=== PATIENT | female | born 1935 | race Caucasian/White ===

== ENCOUNTER 2019-05-20 11:25 | Observation (INO) ==
[2019-05-20 11:31] VITALS: BMI 25.7
[2019-05-20] MEDS ORDERED: NS 1000 ML 1,000 ML IV ONE (11:49)
[2019-05-20] MEDS ORDERED: TYLENOL 500 MG TAB EXTRA STRENGTH PO PRN (11:52)
[2019-05-20] MEDS ORDERED: NS 1000 ML 1,000 ML ONE (12:07)
[2019-05-20 12:11] LABS: BASOPHILS % (AUTO) 0.6 % (0.2-1.0); EOSINOPHILS # (AUTO) 0.1 x10^3/uL (0.0-0.2); EOSINOPHILS % (AUTO) 1.2 % (0.9-2.9); LYMPHOCYTES % (AUTO) 20.3 % (21.0-51.0); MEAN CORPUSCULAR HEMOGLOBIN 27.8 pg (27.0-34.0); MEAN CORPUSCULAR HGB CONC 34.5 g/dL (33.0-35.0); MEAN CORPUSCULAR VOLUME 80.6 fL (80.0-100.0); MEAN PLATELET VOLUME 7.4 fL (7.4-11.0); MONOCYTES # (AUTO) 0.3 x10^3/uL (0.3-0.8); MONOCYTES % (AUTO) 6.3 % (0.0-13.0); NEUTROPHILS # (AUTO) 3.4 x10^3/uL (2.2-4.8); NEUTROPHILS % (AUTO) 71.6 % (42.0-75.0); PLATELET COUNT 246 X10^3/uL (150.0-450.0); RED BLOOD COUNT 3.96 X10^6/uL (3.5-5.4); RED CELL DISTRIBUTION WIDTH 14.6 % (11.6-16.5); WHITE BLOOD COUNT 4.8 X10^3/uL (3.6-10.0)
[2019-05-20 12:22] LABS: BLOOD UREA NITROGEN 21 mg/dL (7-18); CALCIUM 9.2 mg/dL (8.5-10.1); CARBON DIOXIDE 23.9 mmol/L (21-32); CHLORIDE 101 mmol/L (98-107); CREATININE 1.03 mg/dL (0.55-1.02); SODIUM 137 mmol/L (136-145); eGFR NON BLACK RACES 55 (>60)
[2019-05-20] MEDS ORDERED: LOPRESSOR INJ 5 MG AMP IVP ONE (12:42)
[2019-05-20] MEDS ORDERED: LOPRESSOR INJ 5 MG AMP ONE (12:52)
--- NOTE | 2019-05-20 13:07 | DR.DIZZY ---
HPI Time seen Time Seen by Provider: 05/20/19 11:39 PCP Primary Care Physician: FRANCESCA RUSSELL Complaint Chief Complaint Doctor Comments: Pt reports for the past 2 days feeling weak and presyncope when standing. She reports some nausea and not feeling well. She denies any CP, sob or melena. She has history of GIB in the past and is now currently on hydralazine PO and does not take her other home medications (metoprolol tart 25, amlodipine, tramadol and protonix. Denies any falls and use walker for assistance. Chief Complaint:: PT C/O THAT WHEN SHE STANDS UP SHE ABOUT PASSES OUT ,BR Self Treatment fo Chief Complaint: PT TOOK HER HYDRALIZINE THIS AM , PASSING BLOOD IN HER STOOLS, Nurses Notes Reviewed Nurses Notes Review: Yes Source History Provided: Patient and Family Member Mode of Arrival Mode of Arrival: Ambulatory Timing Onset of Chief Complaint: 05/18/19 Came on: Gradually Symptom Onset: Known Onset of Symptoms Start Date: 05/18/19 Duration Duration: Intermittent Location of Weakness Weakness Location: Generalized Context Onset: At rest and With light exertion Does pt take pot. toxic medication?: No History of: Anemia and GI Bleed; denies DM and OK Stroke Symptoms: None Associated signs and symptoms Associated Signs and Symptoms: Near Syncope, Weak, Palpitations and Nausea; denies Syncope and Fever PMH PMH Past Medical History: Yes Past Medical History: Hypertension Past Medical History Comment: GIB Past Surgical History: Yes Surgical History: Family History History of Family Medical Conditions: Yes Family Medical History: [place] and Hypertension Social History Does patient currently use any type of tobacco product: No Have you used tobacco products in the last 12 months: No Type of Tobacco Use: None Does any household member use tobacco: No Alcohol Use: None Do you use any recreational Drugs:: No Lives With: Family Lives Where: Home infectious screening In the last 2 months have you had wt loss of >10#?: NO Have you had fever, night sweats or hemotysis?: No Have you traveled outside the country in the last 6 months?: No Isolation: Standard ROS Review of Systems Constitutional: No Symptoms Reported and Fatigue; negative Chills and Fever Eyes: No Symptoms Reported ENTM: No Symptoms Reported Respiratoy: No Symptoms Reported and See HPI; negative Short of Breath Cardiovascular: No Symptoms Reported, See HPI, Palpitations and Syncope; negative Chest Pain Gastrointestinal/Abdominal: No Symptoms Reported, See HPI and Nausea; negative Abdominal Pain Genitourinary: No Symptoms Reported; negative Hematuria Neurological: No Symptoms Reported; negative Paresthesia Musculoskeletal: No Symptoms Reported Integumentary: No Symptoms Reported Hematologic/Lymphatic: No Symptoms Reported and Anemia; negative Easy Bleeding and Easy Bruising Endocrine: No Symptoms Reported Psychiatric: No Symptoms Reported; negative Depression All Other Systems: Reviewed and Negative PE Vital Signs Vitals: Temperature 96.6 F Pulse Rate [Apical] 143 Pulse Rate 109 Respiratory Rate 20 Blood Pressure [Right Arm] 140/89 Blood Pressure 128/74 O2 Sat by Pulse Oximetry 98 General Limitations: No Limitations General Appearance: Alert, In No Apparent Distress and In Distress (mild) Head Head Exam: Normal Inspection and Atraumatic Eyes Eye exam: Normal Appearance and Other; negative Scleral Icterus Pupils: Regular, Round: Bilateral and Reactive: Bilateral Sclera/Conjunctival: Normal Inspection: Bilateral (pale conjunctiva) ENT ENT Exam: Normal Exam, Normal Oropharynx and Normal External Ear Exam Neck Neck Exam: Normal Inspection and Full ROM Chest Chest Inspection: Normal Inspection Respiratory Respiratory Exam: Normal Lung Sounds Bilat; negative Chest Wall Tenderness and Respiratory Distress Cardiovascular Cardiovascular Exam: Tachycardia and Irregular Rhythm Abdominal Exam Abdominal Exam: Normal Inspection, Normal Bowel Sounds and Soft Extremeties Extremities Exam: Normal Inspection and Full ROM Back Back Exam: Normal Inspection and Full ROM Neurologic Neurological Exam: Alert, Oriented X3, CN II-XII Intact, Motor Sensory Deficit and Reflexes Normal Patient Oriented To: Person, Place and Time Speech: Fluid Speech Psychiatric Psychiatric Exam: Normal Affect and Normal Mood Skin Skin Exam: Warm, Dry, Intact and Normal Color MDM Additional Information Obtained Additional Information Obtained From: Family Differential Diagnosis Differential Diagnosis: Dysrhythmia (new onset afib) Differential Diagnosis Comment: [place]/GIB/anemia/dehdyration COURSE Treatment Treatment: Pt presented with elevated HR in 140s. She is afib and has not been taking metoprolol. Pt CHADS2 score 2. Will start on Eliquis. Reevaluation 1st: Improved (pt HR improved to 110 irregular after BB. Pt has no symptoms at time. Pt needs further evaluation for afib) Consultation Called: 13:21 Call Returned: 13:21 Consultation Comments: Pt with new onset afib. Spoke to Dr. Baxter and will admit and see in hospital Education/Counseling Education/Counseling: Patient, Family and Education Educated On: Treatment, Diagnosis, Prognosis and Needs for Follow Up (cardiology) ROR Labs Reviewed Laboratory Results Reviewed?: Yes Result Diagrams: 05/20/19 12:01 05/20/19 12:01 Laboratory: WBC 4.8 X10^3/uL (3.6-10.0) 05/20/19 12:01 RBC 3.96 X10^6/uL (3.5-5.4) 05/20/19 12:01 Hgb 11.0 g/dL (12.0-16.0) L 05/20/19 12:01 Hct 32.0 % (36.0-47.0) L 05/20/19 12:01 MCV 80.6 fL (80.0-100.0) 05/20/19 12:01 MCH 27.8 pg (27.0-34.0) 05/20/19 12:01 MCHC 34.5 g/dL (33.0-35.0) 05/20/19 12:01 RDW 14.6 % (11.6-16.5) 05/20/19 12:01 Plt Count 246 X10^3/uL (150.0-450.0) 05/20/19 12:01 MPV 7.4 fL (7.4-11.0) 05/20/19 12:01 Neut % (Auto) 71.6 % (42.0-75.0) 05/20/19 12:01 Lymph % (Auto) 20.3 % (21.0-51.0) L 05/20/19 12:01 [place] % (Auto) 6.3 % (0.0-13.0) 05/20/19 12:01 Eos % (Auto) 1.2 % (0.9-2.9) 05/20/19 12:01 Baso % (Auto) 0.6 % (0.2-1.0) 05/20/19 12:01 Neut # (Auto) 3.4 x10^3/uL (2.2-4.8) 05/20/19 12:01 Lymph # (Auto) 1.0 X10^3/uL (1.3-2.9) L 05/20/19 12:01 [place] # (Auto) 0.3 x10^3/uL (0.3-0.8) 05/20/19 12:01 Eos # (Auto) 0.1 x10^3/uL (0.0-0.2) 05/20/19 12:01 Baso # (Auto) 0.0 X10^3/uL (0.0-0.1) 05/20/19 12:01 Absolute Nucleated RBC 0.0 /100WBC 05/20/19 12:01 INR Target Range - 05/20/19 12:01 INR 1.12 (0.8-1.3) 05/20/19 12:01 Sodium 137 mmol/L (136-145) 05/20/19 12:01 Corrected Sodium TNP 05/20/19 12:01 Potassium 4.0 mmol/L (3.5-5.1) 05/20/19 12:01 Chloride 101 mmol/L (98-107) 05/20/19 12:01 Carbon Dioxide 23.9 mmol/L (21-32) 05/20/19 12:01 BUN 21 mg/dL (7-18) H 05/20/19 12:01 Creatinine 1.03 mg/dL (0.55-1.02) H 05/20/19 12:01 Est GFR (MDRD) Af Amer > 60 (>60) 05/20/19 12:01 Est GFR (MDRD) Non-Af 55 (>60) L 05/20/19 12:01 Glucose 108 mg/dL (65-99) H 05/20/19 12:01 Calcium 9.2 mg/dL (8.5-10.1) 05/20/19 12:01 Troponin I 0.30 ng/mL (0-1.5) 05/20/19 12:01 TSH 3rd Generation 1.325 uIU/mL (0.358-3.74) 05/20/19 12:01 XRAY XRAY Interpreted by: Self XRAY Findings: CM, NAF EKG Rate: 126 Rush: Normal Rhythm: Afib Block: None Hypertrophy: None ST: Nonsp Opioid Opioid Risk Tool Total: 0 Total Score Risk Category: Low Risk Copyright: [facility] predicting aberrant behaviors
[2019-05-20] MEDS ORDERED: TOPROL XL PO SCH (14:00)
[2019-05-20] MEDS: NS 1000 ML 1,000 ML IV SCH (14:42)
[2019-05-20] MEDS ORDERED: ELIQUIS ONE (14:44)
[2019-05-20] MEDS ORDERED: TOPROL XL PO ONE (14:44)
[2019-05-20] MEDS: ELIQUIS PO SCH ×2 (14:49→21:12)
[2019-05-20 16:43] LABS: BILIRUBIN,URINE NEGATIVE (NEGATIVE); BLOOD/HEMOGLOBIN,URINE 1+ (NEGATIVE); GLUCOSE, URINE NEGATIVE (NEGATIVE); KETONES,URINE NEGATIVE (NEGATIVE); LEUKOCYTE ESTERASE ,URINE 3+ (NEGATIVE); NITRITES,URINE NEGATIVE (NEGATIVE); PH,URINE 6.5 (5.0 - 8.0); PROTEIN,URINE 2+ (NEGATIVE); UROBILINOGEN,URINE NORMAL (NORMAL)
[2019-05-20 16:53] LABS: APPEARANCE,URINE CLOUDY (CLEAR); COLOR,URINE YELLOW (YELLOW)
[2019-05-20 16:54] LABS: RBC,URINE 0-2 /HPF (NONE SEEN); SQUAMOUS EPITHELIAL CELL,UR MODERATE /HPF (NEGATIVE)
[2019-05-20 16:55] LABS: AMORPHOUS SEDIMENT,UR 2+ /HPF (NEGATIVE); BACTERIA,URINE 2+ /HPF (NEGATIVE); RENAL EPITHELIAL CELLS,URINE RARE /HPF (NEGATIVE)
[2019-05-20] MEDS ORDERED: APRESOLINE TAB 25 MG PO SCH (21:00)
[2019-05-21 05:12] LABS: BASOPHILS % (AUTO) 0.7 % (0.2-1.0); EOSINOPHILS # (AUTO) 0.1 x10^3/uL (0.0-0.2); EOSINOPHILS % (AUTO) 2.4 % (0.9-2.9); HEMOGLOBIN 10.2 g/dL (12.0-16.0); LYMPHOCYTES # (AUTO) 1.4 X10^3/uL (1.3-2.9); LYMPHOCYTES % (AUTO) 33.3 % (21.0-51.0); MEAN CORPUSCULAR HEMOGLOBIN 28.1 pg (27.0-34.0); MEAN CORPUSCULAR HGB CONC 35.2 g/dL (33.0-35.0); MEAN CORPUSCULAR VOLUME 79.9 fL (80.0-100.0); MEAN PLATELET VOLUME 7.7 fL (7.4-11.0); MONOCYTES # (AUTO) 0.2 x10^3/uL (0.3-0.8); MONOCYTES % (AUTO) 5.5 % (0.0-13.0); NEUTROPHILS # (AUTO) 2.4 x10^3/uL (2.2-4.8); NEUTROPHILS % (AUTO) 58.1 % (42.0-75.0); PLATELET COUNT 220 X10^3/uL (150.0-450.0); RED BLOOD COUNT 3.64 X10^6/uL (3.5-5.4); RED CELL DISTRIBUTION WIDTH 14.8 % (11.6-16.5); WHITE BLOOD COUNT 4.1 X10^3/uL (3.6-10.0)
[2019-05-21] MEDS: NS 1000 ML 1,000 ML IV SCH ×2 (05:19→21:05)
[2019-05-21 05:23] LABS: BLOOD UREA NITROGEN 20 mg/dL (7-18); CALCIUM 8.4 mg/dL (8.5-10.1); CARBON DIOXIDE 25.8 mmol/L (21-32); CHLORIDE 107 mmol/L (98-107); CREATININE 0.89 mg/dL (0.55-1.02); SODIUM 141 mmol/L (136-145); eGFR NON BLACK RACES > 60 (>60)
[2019-05-21] MEDS ORDERED: TOPROL XL PO SCH ×2 (09:00→15:34)
[2019-05-21] MEDS: ELIQUIS PO SCH ×2 (10:57→21:06)
--- NOTE | 2019-05-21 11:21 | CONS ---
Cardiology Consult Consultation for Day of: Date: 05/21/19 Chief Complaint Chief Complaint: near syncope Allergies Allergies Allergy/AdvReac Type Severity Reaction Status Date / Time No Known Drug Allergies Allergy Verified 05/20/19 11:26 History of Present Illness History of Present Illness: Patient presents to the ED with near syncope that started about 4 days ago. She states it was gradually getting worse which led her to coming to the ED. The near syncope is daily with getting up and occurs without any other symptoms. She comes to the ED and is found to be in atrial fib with heart rate not optimized. She was started on Eliquis and metoprolol which was just increased to 50mg daily. Past Medical History Past Medical History: Anemia and Hypertension Additional Medical History: hx GI bleed Past Surgical History Surgical History: and Tonsillectomy Family History Family Medical History: [place] and Hypertension Social History Does patient currently use any type of tobacco product: No Have you used tobacco products in the last 12 months: No Type of Tobacco Use: None Does any household member use tobacco: No Alcohol Use: None Drug Use: None Medications Home Medications: No Known Drug Allergies Allergy (Verified 05/20/19 11:26) CONTINUE taking the following medications tramadol 50 mg PO Q6HR 05/20/19 [History] Physical Exam Vital Signs: Temperature 97.8 F Pulse Rate [Apical] 113 Pulse Rate 109 Respiratory Rate 22 Blood Pressure [Right Arm] 174/77 Blood Pressure 128/74 O2 Sat by Pulse Oximetry 100 Medical Decision Making Reason for Consult: Cardiac Dysrhythmia (atrial fib) EKG Results: Atrial Fibrillation Labs reviewed: Yes Plan Plan: 1. New onset atrial fib on metoprolol and Eliquis which was started in hospital- continue meds continue to monitor on telemetry 2. near syncope f/u with echo 3. Htn currently not optimized 4. hx GI bleed will closely monitor pt on eliquis
--- NOTE | 2019-05-21 11:50 | CONS ---
Documented by User: QUIN COHEN 05/21/19 11:50 Cardiology Consult Allergies Allergies Allergy/AdvReac Type Severity Reaction Status Date / Time No Known Drug Allergies Allergy Verified 05/20/19 11:26 Past Medical History Past Medical History: Additional Medical History: Past Surgical History Surgical History: Family History Family Medical History: Social History Does patient currently use any type of tobacco product: Have you used tobacco products in the last 12 months: Type of Tobacco Use: Does any household member use tobacco: Alcohol Use: Drug Use: Medications Home Medications: No Known Drug Allergies Allergy (Verified 05/20/19 11:26) CONTINUE taking the following medications tramadol 50 mg PO Q6HR 05/20/19 [History] Physical Exam Vital Signs: Temperature 97.8 F Pulse Rate [Apical] 99 Pulse Rate 109 Respiratory Rate 18 Blood Pressure [Right Arm] 172/92 Blood Pressure 128/74 O2 Sat by Pulse Oximetry 100 Documented by User: Jomar Lee 05/21/19 12:02 Cardiology Consult Allergies Allergies Allergy/AdvReac Type Severity Reaction Status Date / Time No Known Drug Allergies Allergy Verified 05/20/19 11:26
--- NOTE | 2019-05-21 11:54 | CONS ---
Cardiology Consult Allergies Allergies Allergy/AdvReac Type Severity Reaction Status Date / Time No Known Drug Allergies Allergy Verified 05/20/19 11:26 Past Medical History Past Medical History: Anemia and Hypertension Additional Medical History: hx GI bleed Past Surgical History Surgical History: and Tonsillectomy Family History Family Medical History: [place] and Hypertension Social History Does patient currently use any type of tobacco product: No Have you used tobacco products in the last 12 months: No Type of Tobacco Use: None Does any household member use tobacco: No Alcohol Use: None Drug Use: None Medications Home Medications: No Known Drug Allergies Allergy (Verified 05/20/19 11:26) CONTINUE taking the following medications tramadol 50 mg PO Q6HR 05/20/19 [History] Physical Exam Vital Signs: Temperature 97.8 F Pulse Rate [Apical] 99 Pulse Rate 109 Respiratory Rate 18 Blood Pressure [Right Arm] 172/92 Blood Pressure 128/74 O2 Sat by Pulse Oximetry 100 Impression: Presently she is not bleeding but she has chronic anemia and they placed her on Eliquis. My official recommendation is as follows I would suspect the patient is likely to rebleed in the future especially being on Eliquis. I would recommend treating her with a baby aspirin daily and consider referring her for a possible watchman procedure. . The patient was admitted now with atrial fibrillation with a rapid ventricular response. 1-Consider stopping eliquis due to severe GI bleed in the past. 2-Place on baby ASA only. 3-Add low dose cardizem to the metoprolol for better rate control. 4-Will discuss with electrophysiology with regards to a possible Watchman proced ure. 5-Follow up with me in [place] office on May 30. 6-Will review echo results.
[2019-05-21] MEDS: ZESTRIL TAB 10 MG PO SCH (12:29)
[2019-05-21] MEDS ORDERED: TOPROL XL ONE (15:37)
[2019-05-21] MEDS ORDERED: XYLOCAINE 1% and EPINEPHRINE 1:100,000 ONE (16:04)
[2019-05-21] MEDS ORDERED: RESTORIL CAP 15 MG PO PRN (21:59)
[2019-05-21] MEDS ORDERED: RESTORIL CAP 15 MG PO ONE (22:01)
[2019-05-22] MEDS ORDERED: TOPROL XL ONE (08:06)
[2019-05-22] MEDS: ZESTRIL TAB 10 MG PO SCH (08:37)
[2019-05-22] MEDS ORDERED: TOPROL XL PO SCH (09:00)
[2019-05-22] MEDS: ELIQUIS PO SCH (09:58)
[2019-05-22] MEDS: NS 1000 ML 1,000 ML IV SCH (09:58)
[2019-05-22 11:42] VITALS: BP 163/73
== END 2019-05-22 12:05 | disposition home or self-care (01) ==
LOC: ICU 11:25 → ER 11:25 → ICU 14:29
PROVIDERS: ADMIT Obstetrics & Gynecology Obstetrics; ATTEND Obstetrics & Gynecology Obstetrics
DX: I10 Essential (primary) hypertension; R94.31 Abnormal electrocardiogram [ECG] [EKG]; R55 Syncope and collapse; I48.91 Unspecified atrial fibrillation; Z87.19 Personal history of other diseases of the digestive system; S31.43XA Puncture wound without foreign body of vagina and vulva, initial encounter
CPT/HCPCS: 36415; 71010; 71045; 80048; 81001; 84443; 84484; 85025; 85610; 87086; 88305; 93005; 93306; 96365; 96367; 96374; 99285; A4216; A4222; G0378; J3490; J7030

== ENCOUNTER 2019-09-05 06:30 | Inpatient (IN) ==
[2019-09-05] MEDS ORDERED: NS 1000 ML 1,000 ML IV ONE (07:00)
[2019-09-05] MEDS ORDERED: NS 1000 ML 1,000 ML ONE (07:00)
[2019-09-05 07:11] LABS: BASOPHILS % (AUTO) 0.7 % (0.2-1.0); EOSINOPHILS # (AUTO) 0.1 x10^3/uL (0.0-0.2); EOSINOPHILS % (AUTO) 1.9 % (0.9-2.9); HEMATOCRIT 22.8 % (36.0-47.0); HEMOGLOBIN 7.7 g/dL (12.0-16.0); LYMPHOCYTES # (AUTO) 1.5 X10^3/uL (1.3-2.9); LYMPHOCYTES % (AUTO) 23.1 % (21.0-51.0); MEAN CORPUSCULAR HEMOGLOBIN 26.7 pg (27.0-34.0); MEAN CORPUSCULAR HGB CONC 33.6 g/dL (33.0-35.0); MEAN CORPUSCULAR VOLUME 79.3 fL (80.0-100.0); MEAN PLATELET VOLUME 8.6 fL (7.4-11.0); MONOCYTES # (AUTO) 0.3 x10^3/uL (0.3-0.8); MONOCYTES % (AUTO) 5.3 % (0.0-13.0); NEUTROPHILS # (AUTO) 4.5 x10^3/uL (2.2-4.8); PLATELET COUNT 215 X10^3/uL (150.0-450.0); RED BLOOD COUNT 2.87 X10^6/uL (3.5-5.4); RED CELL DISTRIBUTION WIDTH 15.7 % (11.6-16.5); WHITE BLOOD COUNT 6.5 X10^3/uL (3.6-10.0)
[2019-09-05 07:13] LABS: ALBUMIN 2.9 g/dL (3.4-5.0); CALCIUM 8.3 mg/dL (8.5-10.1); CARBON DIOXIDE 25.4 mmol/L (21-32); COR CA(FOR HYPOALB) 9.2 mg/dL (8.5-10.1); CREATININE 1.26 mg/dL (0.55-1.02); TOTAL PROTEIN 5.9 g/dL (6.4-8.2)
[2019-09-05 07:17] LABS: ANISOCYTOSIS SLIGHT; MICROCYTOSIS SLIGHT; PLATELET MORPHOLOGY COMMENT NORMAL (NORMAL); POIKILOCYTOSIS SLIGHT
--- NOTE | 2019-09-05 07:22 | DR.GIBLEED ---
HPI Time Seen Time Seen by Provider: 09/05/19 06:49 Primary Care Physician Primary Care Physician: NFD Complaints Chief Complaint Doctors Comments: 84yo female presented for rectal bleeding. Pt reports 2d ago noticed blood in her stools. She report the blood is bright red and color of beats. She has a history of internal hemorrhoids removed and colon oscopy earlier this year. She had episode of GIB and required multiple units of PRBCs. She was placed on Eliquis 06/2019 for afib. Today she reports some lower abdominal cramping. Pain is 2/10. She has had gross melena with her BM. Denies any SOB, CP or dysuria. Chief Complaint:: PATIENT STATES SHE HAS BEEN GOING TO THE BATHROOM ALL NIGHT WITH BLEEDING , STATES THIS HAS HAPPENED BEFORE AND SHE HAD TO HAVE SOME BLOOD AND BE SENT TO [place], [place] NOTED TO BE ON ELIQUIS. Self Treatment fo Chief Complaint: N.A Reviewed Nurses Notes Reviewed: Yes Source History Provided: Patient Mode of Arrival Mode of Arrival: Ambulatory Timing Onset of Chief Complaint: 09/05/19 Duration Bleeding: Currently Present Duration: Days Quality Vomitus: None Stools: Streaking Blood History Of: GI Bleed and Current anticoagulant use (eliquis) Severity Severity: None Measure: Teaspoons Context Onset: After bowel movement Recent Use Of: None Associated Signs and Symptoms Associated Signs and Symptoms: Abdominal Pain PMH PMH Past Medical History: Yes Past Medical History: Anemia and Hypertension Past Medical History Comment: AFIB Past Surgical History: Yes Surgical History: and Tonsillectomy Family History History of Family Medical Conditions: Yes Family Medical History: [place] and Hypertension Social History Does patient currently use any type of tobacco product: No Have you used tobacco products in the last 12 months: No Type of Tobacco Use: None Does any household member use tobacco: No Alcohol Use: None Do you use any recreational Drugs:: No Lives With: Family Lives Where: Home infectious screening In the last 2 months have you had wt loss of >10#?: NO Have you had fever, night sweats or hemotysis?: No Have you traveled outside the country in the last 6 months?: No Isolation: Standard ROS Review of Systems Constitutional: Weakness and Fatigue Eyes: negative Blurred Vision ENTM: negative Nose Congestion Respiratoy: negative Short of Breath Cardiovascular: negative Chest Pain and Syncope Gastrointestinal/Abdominal: Abdominal Pain and Other (melena); negative Nausea and Vomiting Genitourinary: negative Dysuria and Hematuria Neurological: Weakness; negative Headache Musculoskeletal: negative Muscle Pain Integumentary: negative Bruises Hematologic/Lymphatic: Easy Bleeding Endocrine: negative Decreased Appetite Psychiatric: negative Depression All Other Systems: Reviewed and Negative PE Vital Signs Vitals: Temperature 98.7 F Pulse Rate 100 Respiratory Rate 18 Blood Pressure [Right Arm] 123/67 Blood Pressure 148/94 O2 Sat by Pulse Oximetry 100 General Limitations: No Limitations General Appearance: Alert and In No Apparent Distress Head Head Exam: Normal Inspection, Atraumatic and Normocephalic Eyes Eye exam: Normal Appearance, PERRL, EOMI and Other (pale conjunctiva); negative Scleral Icterus and Conjunctival Injection ENT ENT Exam: Normal Exam, Normal Oropharynx and Mucous Membranes Moist Neck Neck Exam: Normal Inspection and Full ROM Respiratory Respiratory Exam: Normal Lung Sounds Bilat; negative Respiratory Distress Respiratory Exam: Bilateral: Clear to Auscultation Cardiovascular Cardiovascular Exam: Tachycardia and Irregular Rhythm Abdominal Exam Abdominal Exam: Normal Inspection, Normal Bowel Sounds and Soft; negative Distention and Tenderness Rectal Rectal Exam: Normal Rectal Tone, Heme (+) Stool (gross melena) and Bloody Stool; negative Hemorrhoids Extremities Extremities Exam: Normal Inspection, Full ROM and Normal Capillary Refill; negative Tenderness and Edema Back Back Exam: Normal Inspection and Full ROM Neurologic Neurological Exam: Alert, Oriented X3, Normal Gait and Reflexes Normal; negative Motor Sensory Deficit Psychiatric Psychiatric Exam: Normal Affect and Normal Mood Skin Skin Exam: Warm, Dry, Intact and Pallor DIFFERENTIAL DIAGNOSIS Differential Diagnosis Differential Diagnosis: Diverticulosis, PUD and Stress Ulcers COURSE Treatment Treatment: Pt with rectal bleeding on eliguis. Hb 7.7 and positive guiac. Will transfuse 2 units PRBC and admit for further evaluation. Reevaluation 1st: Improved (pt doing well. d/w pt and family and lab and imaging result. Pt stable and will admit) Consultation Consultation Comments: 07:[address] Baxter for admission. Accepted and will see in hospital 07:[address] Purcell for GIB. Recommend NPO and will see in hospital. Agree with plan Education/Counseling Education/Counseling: Patient, Family, Education and Counseling Educated On: Treatment, Diagnosis, Prognosis and Needs for Follow Up (pcp/gi) ROR Labs Reviewed Laboratory Results Reviewed?: Yes Result Diagrams: 09/05/19 06:53 11/13/19 06:53 Laboratory: WBC 6.5 X10^3/uL (3.6-10.0) 09/05/19 06:53 RBC 2.87 X10^6/uL (3.5-5.4) L 09/05/19 06:53 Hgb 7.7 g/dL (12.0-16.0) L 09/05/19 06:53 Hct 22.8 % (36.0-47.0) L 09/05/19 06:53 MCV 79.3 fL (80.0-100.0) L 09/05/19 06:53 MCH 26.7 pg (27.0-34.0) L 09/05/19 06:53 MCHC 33.6 g/dL (33.0-35.0) 09/05/19 06:53 RDW 15.7 % (11.6-16.5) 09/05/19 06:53 Plt Count 215 X10^3/uL (150.0-450.0) 09/05/19 06:53 Plt Count Comment Adequate (ADEQUATE) 09/05/19 06:53 MPV 8.6 fL (7.4-11.0) 09/05/19 06:53 Neut % (Auto) 69.0 % (42.0-75.0) 09/05/19 06:53 Lymph % (Auto) 23.1 % (21.0-51.0) 09/05/19 06:53 [place] % (Auto) 5.3 % (0.0-13.0) 09/05/19 06:53 Eos % (Auto) 1.9 % (0.9-2.9) 09/05/19 06:53 Baso % (Auto) 0.7 % (0.2-1.0) 09/05/19 06:53 Neut # (Auto) 4.5 x10^3/uL (2.2-4.8) 09/05/19 06:53 Lymph # (Auto) 1.5 X10^3/uL (1.3-2.9) 09/05/19 06:53 [place] # (Auto) 0.3 x10^3/uL (0.3-0.8) 09/05/19 06:53 Eos # (Auto) 0.1 x10^3/uL (0.0-0.2) 09/05/19 06:53 Baso # (Auto) 0.0 X10^3/uL (0.0-0.1) 09/05/19 06:53 Absolute Nucleated RBC 0.0 /100WBC 09/05/19 06:53 Plt Morphology Comment Normal (NORMAL) 09/05/19 06:53 RBC Morphology Abnormal (NORMAL) A 09/05/19 06:53 Poikilocytosis Slight A 09/05/19 06:53 Anisocytosis Slight A 09/05/19 06:53 Microcytosis Slight A 09/05/19 06:53 Sodium 143 mmol/L (136-145) 09/05/19 06:53 Corrected Sodium 144 mmol/L (136-145) 09/05/19 06:53 Potassium 3.9 mmol/L (3.5-5.1) 09/05/19 06:53 Chloride 109 mmol/L (98-107) H 09/05/19 06:53 Carbon Dioxide 25.4 mmol/L (21-32) 09/05/19 06:53 BUN 20 mg/dL (7-18) H 09/05/19 06:53 Creatinine 1.26 mg/dL (0.55-1.02) H 09/05/19 06:53 Est GFR (MDRD) Af Amer 52 (>60) L 09/05/19 06:53 Est GFR (MDRD) Non-Af 43 (>60) L 09/05/19 06:53 Glucose 129 mg/dL (65-99) H 09/05/19 06:53 Calcium 8.3 mg/dL (8.5-10.1) L 09/05/19 06:53 Corrected Calcium 9.2 mg/dL (8.5-10.1) 09/05/19 06:53 Total Bilirubin 0.70 mg/dL (0.2-1.0) 09/05/19 06:53 AST 17 Units/L (15-37) 09/05/19 06:53 ALT 14 Units/L (12-78) 09/05/19 06:53 Alkaline Phosphatase 77 Units/L (46-116) 09/05/19 06:53 Total Protein 5.9 g/dL (6.4-8.2) L 09/05/19 06:53 Albumin 2.9 g/dL (3.4-5.0) L 09/05/19 06:53 Globulin 3.0 g/dL (2.5-4.5) 09/05/19 06:53 Albumin/Globulin Ratio 1.0 Ratio (1.1-2.1) L 09/05/19 06:53 Stool Description Fob tube 09/05/19 07:01 Stl Occult Blood (IFOB) Negative (NEGATIVE) 09/05/19 07:01 Blood Type O POSITIVE 09/05/19 06:53 Antibody Screen Negative 09/05/19 06:53 Crossmatch See Detail 09/05/19 06:53 Other Results Comments: Hb 7.7 hct 22.8 Plt 215 Cr 1.26 BUN [address] a/p: Diverticulosis w/o diverticulitis Opioid Opioid Risk Tool Age (Jordon box if 16-45): No History of Preadolescent Sexual Abuse: No Total: 0 Total Score Risk Category: Low Risk Copyright: [facility] predicting aberrant behaviors Diagnosis Discharge Problem: Acute blood loss anemia, Acute GI bleeding, Chronic a-fib, Anticoagulant effect, CKD (chronic kidney disease) stage 3, GFR 30-59 ml/min Instructions Forms: Excuse From Work Patient Portal ADDITIONAL NOTES Additional Notes Additional Notes: I have personally reviewed your medications, lab results, imaging and time was spent discussion results. Patient educated on their health issue. They verbalized their understanding and agreed with plan of care. Instruction were given to patient at discharge. Condition: Stable Disposition: Admission
[2019-09-05] MEDS ORDERED: PROTONIX INJ 40 MG VIAL IVP ONE (07:29)
[2019-09-05] MEDS ORDERED: NS 500 ML IV 500 ML IV ONE (07:35)
--- NOTE | 2019-09-05 08:19 | CT ---
HISTORY: Lower abdominal pain, GI bleeding Study: CT abdomen pelvis with contrast Comparison: 02/28/2019 Technique: Axial post-contrast images with coronal and sagittal reformats. Dose reduction procedures were used with mA/kv adjusted for body size. Findings: The lung bases are clear. Small bilateral pleural effusions are present. The heart is enlarged. The liver, spleen, adrenal glands, and pancreas are within normal limits. Cholelithiasis is present. There is no evidence for cholecystitis. The kidneys are unobstructed and without stones or masses. No ureteral calculi are identified. Calcific atherosclerotic changes present in a nondilated abdominal aorta. There are no findings suggestive of diverticulitis or colitis. Diverticulosis of the descending and sigmoid colon is identified. The appendix is not identified with absolute certainty. There are no secondary signs of appendicitis present. Examination of the pelvis demonstrated no evidence for pelvic masses, pelvic fluid, or pelvic lymphadenopathy. There is some mild pericystic fat stranding. Cystitis is possible. Clinical correlation is recommended. No lytic or blastic skeletal lesions of significance are identified. IMPRESSION: Cholelithiasis without evidence for cholecystitis Diverticulosis of the descending and sigmoid colon without evidence for diverticulitis Pericystic fat stranding suggestive of the possibility of cystitis. Clinical correlation is recommended. Bilateral small pleural effusions right greater than left Reported By:
[2019-09-05] MEDS: NS 1000 ML 1,000 ML IV SCH ×2 (09:08→19:12)
[2019-09-05] MEDS ORDERED: ULTRAM PO PRN (09:46)
[2019-09-05] MEDS ORDERED: NS 250 ML IV 0 ML IV ONE (10:05)
[2019-09-05 10:06] LABS: BILIRUBIN,URINE NEGATIVE (NEGATIVE); BLOOD/HEMOGLOBIN,URINE NEGATIVE (NEGATIVE); GLUCOSE, URINE NEGATIVE (NEGATIVE); KETONES,URINE NEGATIVE (NEGATIVE); LEUKOCYTE ESTERASE ,URINE NEGATIVE (NEGATIVE); NITRITES,URINE NEGATIVE (NEGATIVE); PROTEIN,URINE 1+ (NEGATIVE); UROBILINOGEN,URINE NORMAL (NORMAL)
[2019-09-05 10:16] LABS: APPEARANCE,URINE CLEAR (CLEAR); COLOR,URINE STRAW (YELLOW)
[2019-09-05 10:17] LABS: BACTERIA,URINE NEGATIVE /HPF (NEGATIVE); RBC,URINE NONE SEEN /HPF (0-3); SQUAMOUS EPITHELIAL CELL,UR RARE /HPF (NEGATIVE)
[2019-09-05] MEDS: FLONASE NASAL SPRAY ENOSTRIL SCH (10:27)
[2019-09-05] MEDS: ZESTORETIC 20/25 MG PO SCH (10:27)
[2019-09-05] MEDS: LOPRESSOR TAB 50 MG PO SCH ×2 (10:27→21:29)
[2019-09-05 10:49] VITALS: BMI 27.7
[2019-09-05] MEDS ORDERED: AFLURIA II4 or FLUARIX II4 IM ONE (10:50)
[2019-09-05 17:06] LABS: HEMOGLOBIN 9.6 g/dL (12.0-16.0)
[2019-09-05] MEDS ORDERED: NORVASC TAB 5 MG PO ONE (17:25)
[2019-09-05] MEDS ORDERED: NORVASC TAB 10 MG ONE (17:26)
[2019-09-05] MEDS ORDERED: VISTARIL PO PRN (18:50)
[2019-09-05] MEDS: PROTONIX INJ 40 MG VIAL IVP SCH (21:30)
[2019-09-06] MEDS: NS 1000 ML 1,000 ML IV SCH ×3 (00:42→20:17)
[2019-09-06 06:14] LABS: BASOPHILS % (AUTO) 0.8 % (0.2-1.0); EOSINOPHILS # (AUTO) 0.2 x10^3/uL (0.0-0.2); EOSINOPHILS % (AUTO) 2.7 % (0.9-2.9); HEMATOCRIT 28.2 % (36.0-47.0); HEMOGLOBIN 9.6 g/dL (12.0-16.0); LYMPHOCYTES # (AUTO) 1.5 X10^3/uL (1.3-2.9); LYMPHOCYTES % (AUTO) 25.7 % (21.0-51.0); MEAN CORPUSCULAR HEMOGLOBIN 27.7 pg (27.0-34.0); MEAN CORPUSCULAR HGB CONC 34.1 g/dL (33.0-35.0); MEAN CORPUSCULAR VOLUME 81.2 fL (80.0-100.0); MEAN PLATELET VOLUME 8.2 fL (7.4-11.0); MONOCYTES # (AUTO) 0.5 x10^3/uL (0.3-0.8); MONOCYTES % (AUTO) 8.5 % (0.0-13.0); NEUTROPHILS # (AUTO) 3.5 x10^3/uL (2.2-4.8); NEUTROPHILS % (AUTO) 62.3 % (42.0-75.0); PLATELET COUNT 173 X10^3/uL (150.0-450.0); RED BLOOD COUNT 3.48 X10^6/uL (3.5-5.4); RED CELL DISTRIBUTION WIDTH 16.3 % (11.6-16.5); WHITE BLOOD COUNT 5.7 X10^3/uL (3.6-10.0)
[2019-09-06 06:21] LABS: BLOOD UREA NITROGEN 16 mg/dL (7-18); CALCIUM 8.1 mg/dL (8.5-10.1); CARBON DIOXIDE 22.5 mmol/L (21-32); CHLORIDE 108 mmol/L (98-107); CREATININE 0.98 mg/dL (0.55-1.02); SODIUM 140 mmol/L (136-145); eGFR NON BLACK RACES 58 (>60)
[2019-09-06] MEDS ORDERED: NS 100 ML IV 100 ML with VENOFER 400 MG IV NR ×2 (08:22)
[2019-09-06] MEDS: ZESTORETIC 20/25 MG PO SCH (09:24)
[2019-09-06] MEDS: NORVASC TAB 5 MG PO SCH (09:24)
[2019-09-06] MEDS: LOPRESSOR TAB 50 MG PO SCH ×2 (09:24→20:19)
[2019-09-06] MEDS: FLONASE NASAL SPRAY ENOSTRIL SCH (09:25)
[2019-09-06] MEDS: PROTONIX INJ 40 MG VIAL IVP SCH ×2 (09:25→20:19)
--- NOTE | 2019-09-06 10:13 | DR.PROGNOT ---
Hospital Progress Notes - Progress Note for Day of: Progress Note Date: 09/06/19 - Chief Complaint Chief Complaint: still having moderate rectal bleeding and mild abdominal pain . no nausea , no vomiting . stable VS . - Past Medical Family Social History Past Med/Fam/Surg Hx: No changes since H&P Allergies: Allergies No Known Drug Allergies Allergy (Verified 09/05/19 06:35) - Review Of Systems ROS: No change since H&P - Vital Signs Vital Signs: Temperature 97.4 F Pulse Rate [Left Brachial] 113 Pulse Rate 98 Respiratory Rate 16 Blood Pressure [Right Arm] 170/92 Blood Pressure 135/68 O2 Sat by Pulse Oximetry 99 - Physical Exam Oriented: Normal Eyes: Normal Ear: Normal Nose: Normal Throat: Normal Respiratory: Normal Cardiovascular: Normal : Normal GI:Auscultation: Normal GI:Palpation: Normal GI: Tenderness: Diffuse, Mild Speech Pattern: Clear, Appropriate - Laboratory and Diagnostics Result Diagrams: 09/06/19 05:25 09/06/19 05:25 Labs: 09/05/19 09:45 Urine,Catheterized Urine Culture - Preliminary Laboratory WBC 5.7 X10^3/uL (3.6-10.0) 09/06/19 05:25 RBC 3.48 X10^6/uL (3.5-5.4) L 09/06/19 05:25 Hgb 9.6 g/dL (12.0-16.0) L 09/06/19 05:25 Hct 28.2 % (36.0-47.0) L 09/06/19 05:25 MCV 81.2 fL (80.0-100.0) 09/06/19 05:25 MCH 27.7 pg (27.0-34.0) 09/06/19 05:25 MCHC 34.1 g/dL (33.0-35.0) 09/06/19 05:25 RDW 16.3 % (11.6-16.5) 09/06/19 05:25 Plt Count 173 X10^3/uL (150.0-450.0) 09/06/19 05:25 Plt Count Comment Adequate (ADEQUATE) 09/05/19 06:53 MPV 8.2 fL (7.4-11.0) 09/06/19 05:25 Neut % (Auto) 62.3 % (42.0-75.0) 09/06/19 05:25 Lymph % (Auto) 25.7 % (21.0-51.0) 09/06/19 05:25 [place] % (Auto) 8.5 % (0.0-13.0) 09/06/19 05:25 Eos % (Auto) 2.7 % (0.9-2.9) 09/06/19 05:25 Baso % (Auto) 0.8 % (0.2-1.0) 09/06/19 05:25 Neut # (Auto) 3.5 x10^3/uL (2.2-4.8) 09/06/19 05:25 Lymph # (Auto) 1.5 X10^3/uL (1.3-2.9) 09/06/19 05:25 [place] # (Auto) 0.5 x10^3/uL (0.3-0.8) 09/06/19 05:25 Eos # (Auto) 0.2 x10^3/uL (0.0-0.2) 09/06/19 05:25 Baso # (Auto) 0.0 X10^3/uL (0.0-0.1) 09/06/19 05:25 Absolute Nucleated RBC 0.1 /100WBC 09/06/19 05:25 Plt Morphology Comment Normal (NORMAL) 09/05/19 06:53 RBC Morphology Abnormal (NORMAL) A 09/05/19 06:53 Poikilocytosis Slight A 09/05/19 06:53 Anisocytosis Slight A 09/05/19 06:53 Microcytosis Slight A 09/05/19 06:53 PT 20.7 SECONDS (11.8-14.3) 09/05/19 06:53 INR Target Range - 09/05/19 06:53 INR 1.85 (0.8-1.3) H 09/05/19 06:53 Sodium 140 mmol/L (136-145) 09/06/19 05:25 Corrected Sodium TNP 09/06/19 05:25 Potassium 3.8 mmol/L (3.5-5.1) 09/06/19 05:25 Chloride 108 mmol/L (98-107) H 09/06/19 05:25 Carbon Dioxide 22.5 mmol/L (21-32) 09/06/19 05:25 BUN 16 mg/dL (7-18) 09/06/19 05:25 Creatinine 0.98 mg/dL (0.55-1.02) 09/06/19 05:25 Est GFR (MDRD) Af Amer > 60 (>60) 09/06/19 05:25 Est GFR (MDRD) Non-Af 58 (>60) L 09/06/19 05:25 Glucose 82 mg/dL (65-99) 09/06/19 05:25 Calcium 8.1 mg/dL (8.5-10.1) L 09/06/19 05:25 Corrected Calcium 9.2 mg/dL (8.5-10.1) 09/05/19 06:53 Total Bilirubin 0.70 mg/dL (0.2-1.0) 09/05/19 06:53 AST 17 Units/L (15-37) 09/05/19 06:53 ALT 14 Units/L (12-78) 09/05/19 06:53 Alkaline Phosphatase 77 Units/L (46-116) 09/05/19 06:53 Total Protein 5.9 g/dL (6.4-8.2) L 09/05/19 06:53 Albumin 2.9 g/dL (3.4-5.0) L 09/05/19 06:53 Globulin 3.0 g/dL (2.5-4.5) 09/05/19 06:53 Albumin/Globulin Ratio 1.0 Ratio (1.1-2.1) L 09/05/19 06:53 Specimen Type Catherized urine 09/05/19 09:45 Urine Color Straw (YELLOW) 09/05/19 09:45 Urine Appearance Clear (CLEAR) 09/05/19 09:45 Urine pH 7.0 (5.0 - 8.0) 09/05/19 09:45 Ur Specific [place] 1.010 (1.000-1.030) 09/05/19 09:45 Urine Protein 1+ (NEGATIVE) 09/05/19 09:45 Urine Glucose (UA) Negative (NEGATIVE) 09/05/19 09:45 Urine Ketones Negative (NEGATIVE) 09/05/19 09:45 Urine Occult Blood Negative (NEGATIVE) 09/05/19 09:45 Urine Nitrite Negative (NEGATIVE) 09/05/19 09:45 Urine Bilirubin Negative (NEGATIVE) 09/05/19 09:45 Urine Urobilinogen Normal (NORMAL) 09/05/19 09:45 Ur Leukocyte Esterase Negative (NEGATIVE) 09/05/19 09:45 Urine RBC None seen /HPF (0-3) 09/05/19 09:45 Urine WBC None seen /HPF (0-5) 09/05/19 09:45 Ur Squamous Epith Cells Rare /HPF (NEGATIVE) 09/05/19 09:45 Urine Bacteria Negative /HPF (NEGATIVE) 09/05/19 09:45 Ur Culture Indicated? No/not indicated 09/05/19 09:45 Stool Description Fob tube 09/05/19 07:01 Stl Occult Blood (IFOB) Negative (NEGATIVE) 09/05/19 07:01 Blood Type O POSITIVE 09/05/19 06:53 Antibody Screen Negative 09/05/19 06:53 Crossmatch See Detail 09/05/19 06:53 - Assessment and Plan 1: recurrent bleeding diverticulosis . GI blood loss anemia . will do EGD in am to r/o bleeding ulcer . - Problem Patient Problems: Patient Problems Acute GI bleeding (Acute) K92.2 Chronic a-fib (Acute) I48.20 Anticoagulant effect (Acute) CKD (chronic kidney disease) stage 3, GFR 30-59 ml/min (Acute) N18.3 Acute blood loss anemia (Acute) D62
[2019-09-07 06:38] LABS: BASOPHILS % (AUTO) 0.6 % (0.2-1.0); EOSINOPHILS # (AUTO) 0.1 x10^3/uL (0.0-0.2); EOSINOPHILS % (AUTO) 3.1 % (0.9-2.9); HEMATOCRIT 30.7 % (36.0-47.0); HEMOGLOBIN 10.3 g/dL (12.0-16.0); LYMPHOCYTES % (AUTO) 20.2 % (21.0-51.0); MEAN CORPUSCULAR HEMOGLOBIN 27.5 pg (27.0-34.0); MEAN CORPUSCULAR HGB CONC 33.6 g/dL (33.0-35.0); MEAN CORPUSCULAR VOLUME 81.7 fL (80.0-100.0); MEAN PLATELET VOLUME 8.3 fL (7.4-11.0); MONOCYTES # (AUTO) 0.4 x10^3/uL (0.3-0.8); MONOCYTES % (AUTO) 7.6 % (0.0-13.0); NEUTROPHILS # (AUTO) 3.3 x10^3/uL (2.2-4.8); NEUTROPHILS % (AUTO) 68.5 % (42.0-75.0); PLATELET COUNT 180 X10^3/uL (150.0-450.0); RED BLOOD COUNT 3.76 X10^6/uL (3.5-5.4); RED CELL DISTRIBUTION WIDTH 16.6 % (11.6-16.5); WHITE BLOOD COUNT 4.8 X10^3/uL (3.6-10.0)
[2019-09-07 06:52] LABS: ALANINE AMINOTRANSFERASE 10 Units/L (12-78); ALBUMIN 2.8 g/dL (3.4-5.0); ALKALINE PHOSPHATASE 77 Units/L (46-116); ASPARTATE AMINO TRANSFERASE 18 Units/L (15-37); BLOOD UREA NITROGEN 13 mg/dL (7-18); CALCIUM 8.4 mg/dL (8.5-10.1); CARBON DIOXIDE 23.3 mmol/L (21-32); CHLORIDE 109 mmol/L (98-107); COR CA(FOR HYPOALB) 9.4 mg/dL (8.5-10.1); CREATININE 1.05 mg/dL (0.55-1.02); SODIUM 142 mmol/L (136-145); TOTAL PROTEIN 6.1 g/dL (6.4-8.2); eGFR NON BLACK RACES 53 (>60)
[2019-09-07] MEDS: NS 1000 ML 1,000 ML IV SCH ×4 (09:45→22:57)
[2019-09-07] MEDS: FLONASE NASAL SPRAY ENOSTRIL SCH (10:00)
[2019-09-07] MEDS: PROTONIX INJ 40 MG VIAL IVP SCH ×2 (10:00→21:00)
[2019-09-07] MEDS ORDERED: DIPRIVAN VIAL 20 ML ONE (13:04)
--- NOTE | 2019-09-07 13:34 | OR.IMMED ---
Immediate Post-Op Note - Immediate Post-Op Note Pre-Op Diagnosis: GI bleeding and anemia. Post-Op Diagnosis: mild gastritis no bleeding , ulcers or neoplasm . Surgeon/Tunneling Machine Operator: Jazzy. Findings: mild gastritis .. brittany bleeding Drains: NONE Condition: Stable (start diet .)
[2019-09-07] MEDS ORDERED: DIPRIVAN VIAL ONE (14:10)
[2019-09-07] MEDS ORDERED: STERILE WATER IRRIGATION IR ONE (14:43)
[2019-09-07] MEDS: ZESTORETIC 20/25 MG PO SCH (15:46)
[2019-09-07] MEDS: NORVASC TAB 5 MG PO SCH (15:46)
[2019-09-07] MEDS: LOPRESSOR TAB 50 MG PO SCH ×2 (15:46→21:00)
[2019-09-08] MEDS: NS 1000 ML 1,000 ML IV SCH (05:48)
[2019-09-08 06:21] LABS: BASOPHILS % (AUTO) 0.9 % (0.2-1.0); EOSINOPHILS # (AUTO) 0.1 x10^3/uL (0.0-0.2); EOSINOPHILS % (AUTO) 2.4 % (0.9-2.9); HEMATOCRIT 28.9 % (36.0-47.0); LYMPHOCYTES # (AUTO) 1.1 X10^3/uL (1.3-2.9); LYMPHOCYTES % (AUTO) 21.9 % (21.0-51.0); MEAN CORPUSCULAR HEMOGLOBIN 28.1 pg (27.0-34.0); MEAN CORPUSCULAR HGB CONC 34.5 g/dL (33.0-35.0); MEAN CORPUSCULAR VOLUME 81.5 fL (80.0-100.0); MEAN PLATELET VOLUME 8.8 fL (7.4-11.0); MONOCYTES # (AUTO) 0.4 x10^3/uL (0.3-0.8); MONOCYTES % (AUTO) 8.2 % (0.0-13.0); NEUTROPHILS # (AUTO) 3.3 x10^3/uL (2.2-4.8); NEUTROPHILS % (AUTO) 66.6 % (42.0-75.0); PLATELET COUNT 173 X10^3/uL (150.0-450.0); RED BLOOD COUNT 3.54 X10^6/uL (3.5-5.4); RED CELL DISTRIBUTION WIDTH 16.4 % (11.6-16.5); WHITE BLOOD COUNT 4.9 X10^3/uL (3.6-10.0)
[2019-09-08] MEDS: NORVASC TAB 5 MG PO SCH (08:21)
[2019-09-08] MEDS: FLONASE NASAL SPRAY ENOSTRIL SCH (08:21)
[2019-09-08] MEDS: LOPRESSOR TAB 50 MG PO SCH (08:21)
[2019-09-08] MEDS: PROTONIX INJ 40 MG VIAL IVP SCH ×2 (08:21→08:25)
[2019-09-08] MEDS: ZESTORETIC 20/25 MG PO SCH (08:22)
--- NOTE | 2019-09-08 09:53 | DR.PROGNOT ---
Hospital Progress Notes - Progress Note for Day of: Progress Note Date: 09/08/19 - Chief Complaint Chief Complaint: no bleeding , tolerating diet well . no nausea , no vomiting .no abdominal pain . stable VS . Hgb 10 . - Past Medical Family Social History Past Med/Fam/Surg Hx: No changes since H&P Allergies: Allergies No Known Drug Allergies Allergy (Verified 09/05/19 06:35) - Review Of Systems ROS: No change since H&P - Vital Signs Vital Signs: Temperature 99.2 F Pulse Rate [Right Brachial] 103 Pulse Rate [Left Brachial] 104 Pulse Rate 106 Respiratory Rate 20 Blood Pressure [Right Arm] 166/94 Blood Pressure 148/66 O2 Sat by Pulse Oximetry 96 - Physical Exam Oriented: Normal Eyes: Normal Ear: Normal Nose: Normal Throat: Normal Respiratory: Normal Cardiovascular: Normal : Normal GI:Auscultation: Normal GI:Palpation: Normal GI: Tenderness: Diffuse, Mild Speech Pattern: Clear, Appropriate - Laboratory and Diagnostics Result Diagrams: 09/08/19 05:25 09/07/19 05:40 Labs: 09/05/19 09:45 Urine,Catheterized Urine Culture - Final Laboratory WBC 4.9 X10^3/uL (3.6-10.0) 09/08/19 05:25 RBC 3.54 X10^6/uL (3.5-5.4) 09/08/19 05:25 Hgb 10.0 g/dL (12.0-16.0) L 09/08/19 05:25 Hct 28.9 % (36.0-47.0) L 09/08/19 05:25 MCV 81.5 fL (80.0-100.0) 09/08/19 05:25 MCH 28.1 pg (27.0-34.0) 09/08/19 05:25 MCHC 34.5 g/dL (33.0-35.0) 09/08/19 05:25 RDW 16.4 % (11.6-16.5) 09/08/19 05:25 Plt Count 173 X10^3/uL (150.0-450.0) 09/08/19 05:25 Plt Count Comment Adequate (ADEQUATE) 09/05/19 06:53 MPV 8.8 fL (7.4-11.0) 09/08/19 05:25 Neut % (Auto) 66.6 % (42.0-75.0) 09/08/19 05:25 Lymph % (Auto) 21.9 % (21.0-51.0) 09/08/19 05:25 [place] % (Auto) 8.2 % (0.0-13.0) 09/08/19 05:25 Eos % (Auto) 2.4 % (0.9-2.9) 09/08/19 05:25 Baso % (Auto) 0.9 % (0.2-1.0) 09/08/19 05:25 Neut # (Auto) 3.3 x10^3/uL (2.2-4.8) 09/08/19 05:25 Lymph # (Auto) 1.1 X10^3/uL (1.3-2.9) L 09/08/19 05:25 [place] # (Auto) 0.4 x10^3/uL (0.3-0.8) 09/08/19 05:25 Eos # (Auto) 0.1 x10^3/uL (0.0-0.2) 09/08/19 05:25 Baso # (Auto) 0.0 X10^3/uL (0.0-0.1) 09/08/19 05:25 Absolute Nucleated RBC 0.4 /100WBC 09/08/19 05:25 Plt Morphology Comment Normal (NORMAL) 09/05/19 06:53 RBC Morphology Abnormal (NORMAL) A 09/05/19 06:53 Poikilocytosis Slight A 09/05/19 06:53 Anisocytosis Slight A 09/05/19 06:53 Microcytosis Slight A 09/05/19 06:53 PT 20.7 SECONDS (11.8-14.3) 09/05/19 06:53 INR Target Range - 09/05/19 06:53 INR 1.85 (0.8-1.3) H 09/05/19 06:53 Sodium 142 mmol/L (136-145) 09/07/19 05:40 Corrected Sodium TNP 09/07/19 05:40 Potassium 3.4 mmol/L (3.5-5.1) L 09/07/19 05:40 Chloride 109 mmol/L (98-107) H 09/07/19 05:40 Carbon Dioxide 23.3 mmol/L (21-32) 09/07/19 05:40 BUN 13 mg/dL (7-18) 09/07/19 05:40 Creatinine 1.05 mg/dL (0.55-1.02) H 09/07/19 05:40 Est GFR (MDRD) Af Amer > 60 (>60) 09/07/19 05:40 Est GFR (MDRD) Non-Af 53 (>60) L 09/07/19 05:40 Glucose 99 mg/dL (65-99) 09/07/19 05:40 Calcium 8.4 mg/dL (8.5-10.1) L 09/07/19 05:40 Corrected Calcium 9.4 mg/dL (8.5-10.1) 09/07/19 05:40 Total Bilirubin 0.90 mg/dL (0.2-1.0) 09/07/19 05:40 AST 18 Units/L (15-37) 09/07/19 05:40 ALT 10 Units/L (12-78) L 09/07/19 05:40 Alkaline Phosphatase 77 Units/L (46-116) 09/07/19 05:40 Total Protein 6.1 g/dL (6.4-8.2) L 09/07/19 05:40 Albumin 2.8 g/dL (3.4-5.0) L 09/07/19 05:40 Globulin 3.3 g/dL (2.5-4.5) 09/07/19 05:40 Albumin/Globulin Ratio 0.8 Ratio (1.1-2.1) L 09/07/19 05:40 Specimen Type Catherized urine 09/05/19 09:45 Urine Color Straw (YELLOW) 09/05/19 09:45 Urine Appearance Clear (CLEAR) 09/05/19 09:45 Urine pH 7.0 (5.0 - 8.0) 09/05/19 09:45 Ur Specific [place] 1.010 (1.000-1.030) 09/05/19 09:45 Urine Protein 1+ (NEGATIVE) 09/05/19 09:45 Urine Glucose (UA) Negative (NEGATIVE) 09/05/19 09:45 Urine Ketones Negative (NEGATIVE) 09/05/19 09:45 Urine Occult Blood Negative (NEGATIVE) 09/05/19 09:45 Urine Nitrite Negative (NEGATIVE) 09/05/19 09:45 Urine Bilirubin Negative (NEGATIVE) 09/05/19 09:45 Urine Urobilinogen Normal (NORMAL) 09/05/19 09:45 Ur Leukocyte Esterase Negative (NEGATIVE) 09/05/19 09:45 Urine RBC None seen /HPF (0-3) 09/05/19 09:45 Urine WBC None seen /HPF (0-5) 09/05/19 09:45 Ur Squamous Epith Cells Rare /HPF (NEGATIVE) 09/05/19 09:45 Urine Bacteria Negative /HPF (NEGATIVE) 09/05/19 09:45 Ur Culture Indicated? No/not indicated 09/05/19 09:45 Stool Description Fob tube 09/05/19 07:01 Stl Occult Blood (IFOB) Negative (NEGATIVE) 09/05/19 07:01 Blood Type O POSITIVE 09/05/19 06:53 Antibody Screen Negative 09/05/19 06:53 Crossmatch See Detail 09/05/19 06:53 - Assessment and Plan 1: recurrent bleeding diverticulosis . GI blood loss anemia . normal EGD . will follow as needed . - Problem Patient Problems: Patient Problems Acute GI bleeding (Acute) K92.2 Chronic a-fib (Acute) I48.20 Anticoagulant effect (Acute) CKD (chronic kidney disease) stage 3, GFR 30-59 ml/min (Acute) N18.3 Acute blood loss anemia (Acute) D62
[2019-09-08 12:34] VITALS: BP 139/76
[2019-09-08] MEDS ORDERED: AFLURIA II4 or FLUARIX II4 IM ONE ×2 (14:35→14:36)
== END 2019-09-08 14:50 | disposition home or self-care (01) | DRG 378 ==
LOC: ER 06:31 → MED/SURG 07:47 → ICU 07:48 → MED/SURG 09-07 15:51
PROVIDERS: ADMIT Obstetrics & Gynecology Obstetrics; ATTEND Obstetrics & Gynecology Obstetrics
DX: R06.02 Shortness of breath; I48.20 Chronic atrial fibrillation, unspecified; Z79.01 Long term (current) use of anticoagulants; Z23 Encounter for immunization; D62 Acute posthemorrhagic anemia; J90 Pleural effusion, not elsewhere classified; K52.89 Other specified noninfective gastroenteritis and colitis; K80.20 Calculus of gallbladder without cholecystitis without obstruction; N18.3 Chronic kidney disease, stage 3 (moderate); K57.31 Diverticulosis of large intestine without perforation or abscess with bleeding; R79.1 Abnormal coagulation profile
CPT/HCPCS: 36415; 36430; 74177; 80048; 80053; 81001; 82270; 85014; 85018; 85025; 85610; 86850; 86900; 86901; 86922; 87086; 90674; 90686; 96365; 96367; 96374; 99100; 99285; A4217; A4222; C9113; P9016; Q0177; J1756; J2704; J7030; J7040; J7050

== ENCOUNTER 2021-03-02 07:55 | Inpatient (IN) ==
[2021-03-02 08:15] VITALS: BMI 40.2
[2021-03-02 08:36] LABS: BASOPHILS % (AUTO) 0.3 % (0.2-1.0); EOSINOPHILS # (AUTO) 0.1 x10^3/uL (0.0-0.2); EOSINOPHILS % (AUTO) 1.1 % (0.9-2.9); HEMATOCRIT 38.3 % (36.0-47.0); HEMOGLOBIN 12.1 g/dL (12.0-16.0); LYMPHOCYTES # (AUTO) 1.4 X10^3/uL (1.3-2.9); LYMPHOCYTES % (AUTO) 22.2 % (21.0-51.0); MEAN CORPUSCULAR HGB CONC 31.6 g/dL (33.0-35.0); MEAN CORPUSCULAR VOLUME 82.3 fL (80.0-100.0); MEAN PLATELET VOLUME 9.7 fL (7.4-11.0); MONOCYTES # (AUTO) 0.5 x10^3/uL (0.3-0.8); MONOCYTES % (AUTO) 8.2 % (0.0-13.0); NEUTROPHILS # (AUTO) 4.4 x10^3/uL (2.2-4.8); NEUTROPHILS % (AUTO) 68.2 % (42.0-75.0); PLATELET COUNT 173 X10^3/uL (150.0-450.0); RED BLOOD COUNT 4.66 X10^6/uL (3.5-5.4); RED CELL DISTRIBUTION WIDTH 16.6 % (11.6-16.5); WHITE BLOOD COUNT 6.4 X10^3/uL (3.6-10.0)
[2021-03-02] MEDS ORDERED: NS 1000 ML 1,000 ML IV ONE (08:54)
--- NOTE | 2021-03-02 08:54 | DR.GENAD ---
HPI Time Seen Time Seen by Provider: 03/02/21 08:10 PCP Primary Care Physician: Baxter Complaint/Symptoms Chief Complaint Doctors Comments: 85 y/o fm reported to the ED with a 1 wk h/o weakness. Pt's family member stated that the weakness has been going on for approximately one month and progressively gotten worse. One week ago the pt saw her provider for this issue and was restarted on medication for chronic afib. Pt was placed on metoprolol and Eliquis. Pt was supposed to see her PCP this morning but the wanted the pt sent to the ED. Pt denied any chest pain, n/v/d, dizziness, fever, cough, and syncope. Pt has a h/o HTN and takes l isinopril. pmhx: HTN, Afib, anemia, CKD stage 3 Chief Complaint:: Pt c/o general weakness x 1 week. Daughter states pt was out of daily meds x 1 to 2 months and began taking Metoprolol, Lisinopril and Eliquis last week. Pt has mutliple bruises all over. Pt states pt has had several falls in the last week. COVID-19 Coronavirus risk:travel/contact w/high risk person: No Has patient experienced Coronavirus symptoms: No Source History Provided: Patient, Family Member and EMS Mode of Arrival Mode of Arrival: EMS Timing Onset of Chief Complaint: 02/23/21 PMH PMH Past Medical History: Yes Past Medical History: Anemia and Hypertension Past Medical History Comment: AFIB Past Surgical History: Yes Surgical History: , Mastectomy and Tonsillectomy Family History History of Family Medical Conditions: Yes Family Medical History: Hypertension Social History Does patient currently use any type of tobacco product: No Have you used tobacco products in the last 12 months: No Type of Tobacco Use: None Does any household member use tobacco: No Alcohol Use: None Do you use any recreational Drugs:: No Lives With: Family Lives Where: Home Travel Risk Coronavirus risk:travel/contact w/high risk person: No Has patient experienced Coronavirus symptoms: No Infectious screening In the last 2 months have you had wt loss of >10#?: NO Have you had fever, night sweats or hemotysis?: No Have you traveled outside the country in the last 6 months?: No Isolation: Standard ROS Review of Systems Constitutional: Weakness Eyes: No Symptoms Reported ENTM: No Symptoms Reported Respiratoy: Short of Breath Cardiovascular: No Symptoms Reported Gastrointestinal/Abdominal: No Symptoms Reported Genitourinary: No Symptoms Reported Neurological: No Symptoms Reported Musculoskeletal: No Symptoms Reported Integumentary: No Symptoms Reported Hematologic/Lymphatic: No Symptoms Reported Endocrine: No Symptoms Reported Psychiatric: No Symptoms Reported All Other Systems: Reviewed and Negative PE Vital Signs Vitals: Temperature 97.6 F Pulse Rate 98 Respiratory Rate 16 Blood Pressure [Right Arm] 160/85 Blood Pressure 131/79 O2 Sat by Pulse Oximetry 96 General Limitations: No Limitations General Appearance: Alert and In No Apparent Distress Head Head Exam: Normal Inspection Eyes Eye exam: Normal Appearance ENT ENT Exam: Normal Exam TM/Canal Exam: Bilateral: Normal Nose Exam: Normal Nose Exam Mouth Exam: Normal Inspection Throat Exam: Normal Inspection Neck Neck Exam: Normal Inspection Chest Chest Inspection: Normal Inspection Respiratory Respiratory Exam: Normal Lung Sounds Bilat Respiratory Exam: Bilateral: Clear to Auscultation Cardiovascular Cardiovascular Exam: Tachycardia and Irregular Rhythm Abdominal Exam Abdominal Exam: Normal Inspection, Normal Bowel Sounds and Soft Extremities Extremities Exam: Other (Pt had petechia on the feet b/l.) Neurologic Neurological Exam: Alert and Oriented X3 Psychiatric Psychiatric Exam: Normal Affect and Normal Mood Skin Skin Exam: Warm, Dry, Intact and Other (Pt had petechia b/l on the feet. ) MDM Differential Diagnosis Differential Diagnosis: afib, generalized weakness, URI, UTI, anemia COURSE Treatment Treatment: Will give IVF 1 L NS bolus for hydration. (2175): Pt cannot give a UA sample. Verbal order to nursing staff to get an in-and-out catheter. Pt A/O x3. (6216): Pt has a LE + UTI. Will order IV Rocephin [address] Baxter again and he has agreed to admit the pt. Consultation Called: 10:00 Consultation Comments: Consulted pt's PCP and he recommended hydration and d/c. He also stated that he would see pt in his clinic and for the pt to make an appointment. Education/Counseling Education/Counseling: Family (Daughter at bedside.) Educated On: Diagnosis and Needs for Follow Up ROR Labs Reviewed Laboratory Results Reviewed?: Yes Result Diagrams: 03/02/21 08:25 03/02/21 08:25 Laboratory: WBC 6.4 X10^3/uL (3.6-10.0) 03/02/21 08:25 RBC 4.66 X10^6/uL (3.5-5.4) 03/02/21 08:25 Hgb 12.1 g/dL (12.0-16.0) 03/02/21 08:25 Hct 38.3 % (36.0-47.0) 03/02/21 08:25 MCV 82.3 fL (80.0-100.0) 03/02/21 08:25 MCH 26.0 pg (27.0-34.0) L 03/02/21 08:25 MCHC 31.6 g/dL (33.0-35.0) L 03/02/21 08:25 RDW 16.6 % (11.6-16.5) H 03/02/21 08:25 Plt Count 173 X10^3/uL (150.0-450.0) 03/02/21 08:25 MPV 9.7 fL (7.4-11.0) 03/02/21 08:25 Neut % (Auto) 68.2 % (42.0-75.0) 03/02/21 08:25 Lymph % (Auto) 22.2 % (21.0-51.0) 03/02/21 08:25 [place] % (Auto) 8.2 % (0.0-13.0) 03/02/21 08:25 Eos % (Auto) 1.1 % (0.9-2.9) 03/02/21 08:25 Baso % (Auto) 0.3 % (0.2-1.0) 03/02/21 08:25 Neut # (Auto) 4.4 x10^3/uL (2.2-4.8) 03/02/21 08:25 Lymph # (Auto) 1.4 X10^3/uL (1.3-2.9) 03/02/21 08:25 [place] # (Auto) 0.5 x10^3/uL (0.3-0.8) 03/02/21 08:25 Eos # (Auto) 0.1 x10^3/uL (0.0-0.2) 03/02/21 08:25 Baso # (Auto) 0.0 X10^3/uL (0.0-0.1) 03/02/21 08:25 Absolute Nucleated RBC 0.5 /100WBC 03/02/21 08:25 PT 25.1 SECONDS (11.8-14.3) 03/02/21 08:25 INR Target Range - 03/02/21 08:25 INR 2.41 (0.8-1.3) H 03/02/21 08:25 APTT 40.7 SECONDS (22.9-36.5) H 03/02/21 08:25 PTT Comment - 03/02/21 08:25 Sodium 138 mmol/L (136-145) 03/02/21 08:25 Corrected Sodium TNP 03/02/21 08:25 Potassium 4.1 mmol/L (3.5-5.1) 03/02/21 08:25 Chloride 102 mmol/L (98-107) 03/02/21 08:25 Carbon Dioxide 25.7 mmol/L (21-32) 03/02/21 08:25 BUN 37 mg/dL (7-18) H 03/02/21 08:25 Creatinine 1.87 mg/dL (0.55-1.02) H 03/02/21 08:25 Est GFR (MDRD) Af Amer 33 (>60) L 03/02/21 08:25 Est GFR (MDRD) Non-Af 27 (>60) L 03/02/21 08:25 Glucose 100 mg/dL (65-99) H 03/02/21 08:25 Calcium 8.6 mg/dL (8.5-10.1) 03/02/21 08:25 Corrected Calcium 9.5 mg/dL (8.5-10.1) 03/02/21 08:25 Magnesium 2.1 mg/dL (1.7-2.9) 03/02/21 08:25 Total Bilirubin 1.80 mg/dL (0.2-1.0) H 03/02/21 08:25 AST 55 Units/L (15-37) H 03/02/21 08:25 ALT 59 Units/L (12-78) 03/02/21 08:25 Alkaline Phosphatase 140 Units/L (46-116) H 03/02/21 08:25 Creatine Kinase 253 Units/L (26-192) H 03/02/21 08:25 CK-MB (CK-2) 5.6 ng/mL (0-4.0) H* 03/02/21 08:25 CK/CKMB % Calc 2.2 % (<4) 03/02/21 08:25 Troponin I 0.06 ng/mL (0-1.5) 03/02/21 08:25 Total Protein 6.3 g/dL (6.4-8.2) L 03/02/21 08:25 Albumin 2.9 g/dL (3.4-5.0) L 03/02/21 08:25 Globulin 3.4 g/dL (2.5-4.5) 03/02/21 08:25 Albumin/Globulin Ratio 0.9 Ratio (1.1-2.1) L 03/02/21 08:25 Specimen Type Catherized urine 03/02/21 10:54 Urine Color [place] (YELLOW) 03/02/21 10:54 Urine Appearance Cloudy (CLEAR) 03/02/21 10:54 Urine pH 5.0 (5.0 - 8.0) 03/02/21 10:54 Ur Specific [place] 1.025 (1.000-1.030) 03/02/21 10:54 Urine Protein 2+ (NEGATIVE) 03/02/21 10:54 Urine Glucose (UA) Negative (NEGATIVE) 03/02/21 10:54 Urine Ketones 1+ (NEGATIVE) 03/02/21 10:54 Urine Occult Blood Negative (NEGATIVE) 03/02/21 10:54 Urine Nitrite Negative (NEGATIVE) 03/02/21 10:54 Urine Bilirubin 1+ (NEGATIVE) 03/02/21 10:54 Urine Urobilinogen 1+ (NORMAL) 03/02/21 10:54 Ur Leukocyte Esterase 1+ (NEGATIVE) 03/02/21 10:54 Urine RBC 0-2 /HPF (0-3) 03/02/21 10:54 Urine WBC 3-5 /HPF (0-5) 03/02/21 10:54 Ur Squamous Epith Cells Few /HPF (NEGATIVE) 03/02/21 10:54 Urine Bacteria 1+ /HPF (NEGATIVE) 03/02/21 10:54 Hyaline Casts Few /LPF (NEGATIVE) 03/02/21 10:54 Urine Mucus Moderate /HPF (NEGATIVE) 03/02/21 10:54 Ur Culture Indicated? Yes/culture set up 03/02/21 10:54 Influenza Type A Ag Negative-presumptive (NEGATIVE) 03/02/21 08:25 Influenza Type B Ag Negative-presumptive (NEGATIVE) 03/02/21 08:25 SARS CoV-2 RNA Rapid CIPRIANO Negative (NEGATIVE) 03/02/21 08:25 XRAY XRAY Interpreted by: Radiologist X-ray Results: Cardiomegally (no change since previous) EKG Rate: 97 Rhythm: Afib Block: None Hypertrophy: LVH ST: Normal Opioid Opioid Risk Tool Age (Jordon box if 16-45): No History of Preadolescent Sexual Abuse: No Total: 0 Total Score Risk Category: Low Risk Copyright: [facility] predicting aberrant behaviors Diagnosis Discharge Problem: Chronic a-fib, Anticoagulant effect, Acute dehydration, Acute UTI HTN (hypertension) Qualifiers: Hypertension type: essential hypertension Qualified Code(s): I10 - Essential (primary) hypertension CKD (chronic kidney disease) stage 3, GFR 30-59 ml/min Qualifiers: Chronic kidney disease stage 3 subtype: unspecified whether 3a or 3b Qualified Code(s): N18.30 - Chronic kidney disease, stage 3 unspecified
[2021-03-02] MEDS ORDERED: NS 1000 ML 1,000 ML ONE (09:02)
--- NOTE | 2021-03-02 09:09 | RAD ---
HISTORYCHEST PAINSTUDYCHEST, 1 VIEWCOMPARISONPortable chest June 27, 2019FINDINGSThe trachea is midline. The cardiac silhouette is enlarged but stable in size compared to the prior study of June 27, 2019.. The lungs are clear without focal infiltrate or effusion. The bony thorax is unremarkable.IMPRESSIONCardiomegaly but stable chest without change from prior study June 27, 2019.Electronically signed by: ESPINOZA ORTIZ (March 02, 2021 09:07:44)
[2021-03-02 09:16] LABS: ALANINE AMINOTRANSFERASE 59 Units/L (12-78); ALBUMIN 2.9 g/dL (3.4-5.0); ALKALINE PHOSPHATASE 140 Units/L (46-116); ASPARTATE AMINO TRANSFERASE 55 Units/L (15-37); BLOOD UREA NITROGEN 37 mg/dL (7-18); CALCIUM 8.6 mg/dL (8.5-10.1); CARBON DIOXIDE 25.7 mmol/L (21-32); CHLORIDE 102 mmol/L (98-107); CKMB % 2.2 % (<4); COR CA(FOR HYPOALB) 9.5 mg/dL (8.5-10.1); CREATINE KINASE 253 Units/L (26-192); CREATININE 1.87 mg/dL (0.55-1.02); MAGNESIUM 2.1 mg/dL (1.7-2.9); SODIUM 138 mmol/L (136-145); TOTAL PROTEIN 6.3 g/dL (6.4-8.2); TROPONIN I 0.06 ng/mL (0-1.5); eGFR NON BLACK RACES 27 (>60)
[2021-03-02 09:23] LABS: CREATINE KINASE MB 5.6 ng/mL (0-4.0)
[2021-03-02 11:04] LABS: BILIRUBIN,URINE 1+ (NEGATIVE); BLOOD/HEMOGLOBIN,URINE NEGATIVE (NEGATIVE); GLUCOSE, URINE NEGATIVE (NEGATIVE); KETONES,URINE 1+ (NEGATIVE); LEUKOCYTE ESTERASE ,URINE 1+ (NEGATIVE); NITRITES,URINE NEGATIVE (NEGATIVE); PROTEIN,URINE 2+ (NEGATIVE); UROBILINOGEN,URINE 1+ (NORMAL)
[2021-03-02 11:27] LABS: APPEARANCE,URINE CLOUDY (CLEAR); COLOR,URINE AMBER (YELLOW)
[2021-03-02 11:28] LABS: BACTERIA,URINE 1+ /HPF (NEGATIVE); HYALINE CASTS, URINE FEW /LPF (NEGATIVE); MUCUS,URINE MODERATE /HPF (NEGATIVE); RBC,URINE 0-2 /HPF (0-3); SQUAMOUS EPITHELIAL CELL,UR FEW /HPF (NEGATIVE)
[2021-03-02] MEDS ORDERED: ROCEPHIN 1 GRAM IV PREMIX 1 G/50 ML IV.SOLN. IV ONE (11:48)
[2021-03-02] MEDS: ROCEPHIN 1 GRAM IV PREMIX 1 G/50 ML IV.SOLN. IV SCH (11:52)
[2021-03-02] MEDS: NS 1000 ML 1,000 ML IV SCH (13:45)
[2021-03-03] MEDS: NS 1000 ML 1,000 ML IV SCH ×3 (03:46→18:18)
[2021-03-03 05:56] LABS: BILIRUBIN,URINE NEGATIVE (NEGATIVE); BLOOD/HEMOGLOBIN,URINE 1+ (NEGATIVE); GLUCOSE, URINE NEGATIVE (NEGATIVE); KETONES,URINE 1+ (NEGATIVE); LEUKOCYTE ESTERASE ,URINE 1+ (NEGATIVE); NITRITES,URINE NEGATIVE (NEGATIVE); PROTEIN,URINE 2+ (NEGATIVE); UROBILINOGEN,URINE 1+ (NORMAL)
[2021-03-03 06:22] LABS: APPEARANCE,URINE CLEAR (CLEAR); COLOR,URINE DARK YELLOW (YELLOW)
[2021-03-03 06:23] LABS: AMORPHOUS SEDIMENT,UR 1+ /HPF (NEGATIVE); BACTERIA,URINE NEGATIVE /HPF (NEGATIVE); HYALINE CASTS, URINE FEW /LPF (NEGATIVE); RBC,URINE 0-2 /HPF (0-3); SQUAMOUS EPITHELIAL CELL,UR RARE /HPF (NEGATIVE)
[2021-03-03 06:25] LABS: BASOPHILS % (AUTO) 0.2 % (0.2-1.0); EOSINOPHILS # (AUTO) 0.1 x10^3/uL (0.0-0.2); HEMATOCRIT 38.8 % (36.0-47.0); HEMOGLOBIN 12.3 g/dL (12.0-16.0); LYMPHOCYTES # (AUTO) 1.7 X10^3/uL (1.3-2.9); LYMPHOCYTES % (AUTO) 21.6 % (21.0-51.0); MEAN CORPUSCULAR HGB CONC 31.6 g/dL (33.0-35.0); MEAN CORPUSCULAR VOLUME 82.3 fL (80.0-100.0); MEAN PLATELET VOLUME 9.8 fL (7.4-11.0); MONOCYTES # (AUTO) 0.6 x10^3/uL (0.3-0.8); MONOCYTES % (AUTO) 8.1 % (0.0-13.0); NEUTROPHILS # (AUTO) 5.5 x10^3/uL (2.2-4.8); NEUTROPHILS % (AUTO) 69.1 % (42.0-75.0); PLATELET COUNT 172 X10^3/uL (150.0-450.0); RED BLOOD COUNT 4.72 X10^6/uL (3.5-5.4); RED CELL DISTRIBUTION WIDTH 16.7 % (11.6-16.5); WHITE BLOOD COUNT 7.9 X10^3/uL (3.6-10.0)
[2021-03-03 06:45] LABS: ALANINE AMINOTRANSFERASE 65 Units/L (12-78); ALBUMIN 2.8 g/dL (3.4-5.0); ALKALINE PHOSPHATASE 165 Units/L (46-116); ASPARTATE AMINO TRANSFERASE 72 Units/L (15-37); BLOOD UREA NITROGEN 40 mg/dL (7-18); CALCIUM 8.5 mg/dL (8.5-10.1); CARBON DIOXIDE 24.9 mmol/L (21-32); CHLORIDE 105 mmol/L (98-107); CHOL/HDL RATIO 6.4 (0.0-5.0); CHOLESTEROL 108 mg/dL (0-200); COR CA(FOR HYPOALB) 9.5 mg/dL (8.5-10.1); CREATININE 1.78 mg/dL (0.55-1.02); HDL CHOLESTEROL 17 mg/dL (40-60); SODIUM 139 mmol/L (136-145); TOTAL PROTEIN 6.3 g/dL (6.4-8.2); TRIGLYCERIDES 134 mg/dL (0-150); eGFR NON BLACK RACES 29 (>60)
[2021-03-03] MEDS ORDERED: LR 1000 ML IV 500 ML IV ONE (08:29)
[2021-03-03] MEDS ORDERED: ELIQUIS PO SCH (09:00)
[2021-03-03] MEDS: ROCEPHIN 1 GRAM IV PREMIX 1 G/50 ML IV.SOLN. IV SCH (09:32)
[2021-03-03] MEDS: LOPRESSOR TAB 50 MG PO SCH ×2 (09:36→21:28)
[2021-03-03] MEDS: NYSTATIN OINT TOP SCH ×3 (12:14→21:44)
[2021-03-03] MEDS: ZESTRIL TAB 10 MG PO SCH (12:39)
--- NOTE | 2021-03-03 12:59 | MRI ---
HISTORYCHRONIC KIDNEY DISEASESTUDYMRA ABDOMEN WITH OR WO CONCOMPARISONNoneTECHNIQUEMultiplanar, multisequence MR images of the abdomen were obtained without contrast.FINDINGSImages through the lower chest demonstrate marked cardiomegaly with small bilateral pleural effusions. The liver is normal in size and configuration. There is small volume perihepatic free fluid. On the limited sequences, the spleen, stomach, atrophic pancreas, adrenals, and kidneys are grossly unremarkable aside from a 0.7 cm round right renal cortical lesion, demonstrating hyperintense T1 and hypo intense T2 signal (image 22, series 701 and image 44, series 901). The kidneys are symmetric in size. Vascular evaluation is significantly limited. The abdominal aorta is normal in caliber, without evidence for significant stenosis. The visualized proximal left renal artery appears grossly normal. The right renal artery is not as well seen, but appears relatively attenuated diffusely compared with the left, although no focal stenosis can be identified. The IVC is patent.There is mild scoliosis convex to the right centered in the upper lumbar spine. Diffuse body wall edema is noted.IMPRESSIONSignificantly limited angiographic study.The right renal artery appears diffusely attenuated, without obvious high-grade stenosis. Consider renal Doppler ultrasound if there is concern for renal artery stenosis, given limitations of this study. The left renal artery and abdominal aorta appear grossly normal.Subcentimeter right renal lesion most compatible with a proteinaceous/hemorrhagic cyst.Cardiomegaly with findings of volume overload, including small bilateral pleural effusions, perihepatic free fluid, and anasarca.Electronically signed by: VERO ANDRES (March 03, 2021 12:57:54)
--- NOTE | 2021-03-03 13:08 | MRI ---
HISTORYECHYMOSIS AND DELAYED CAP REFILLSTUDYMRA LOWER EXT W/O CONCOMPARISONNoneTECHNIQUEMultiplanar multi-sequence MR images of the pelvis and lower extremities were obtained without contrast.FINDINGSDiffuse body wall edema is noted. There is distal colonic diverticulosis, without evidence for acute diverticulitis. The urinary bladder is mostly collapsed around a Howard catheter. Small amount of nondependent intraluminal bladder gas is compatible with catheterization.The angiographic portion of the study is essentially nondiagnostic. No aneurysmal dilatation of the distal infrarenal aorta or iliac arteries can be identified.IMPRESSIONSeverely limited, essentially nondiagnostic MR angiogram of the lower extremities. Recommend lower extremity arterial Doppler ultrasound.Anasarca, colonic diverticulosis.Electronically signed by: VERO ANDRES (March 03, 2021 13:06:39)
--- NOTE | 2021-03-03 18:03 | VAS ---
HISTORYCOLD JACLYN FEETSTUDYLOWER EXT ARTERIALCOMPARISONNo relevant prior studies available.[id number] color Doppler/vascular waveform static images of the arterial structures in both lower extremities were reviewed.FINDINGSRight lower extremity:Biphasic waveform in the RN [employer] with a peak systolic velocity of 59.0 cm/second.Biphasic waveform in the proximal SFA with a peak systolic velocity of 64.5 cm/second.Biphasic waveform in the mid SFA with a peak systolic velocity of 38.8 cm/second.Biphasic waveform in the distal SFA with a peak systolic velocity of 19.8 cm/second.Biphasic waveform in the distal popliteal artery with a peak systolic velocity of 41.6 cm/second.Monophasic waveform in the proximal [employer] with a peak systolic velocity of 22.6 cm/second.Biphasic waveform in the distal [employer] with a peak systolic velocity of 14.4 cm/second.DPA unable to be visualized.Left lower extremity:Biphasic waveform in the RN [employer] TRI[employer] with a peak systolic velocity of 54.9 cm/second.Biphasic waveform in the proximal SFA with a peak systolic velocity of 38.8 cm/second.Biphasic waveform in the mid SFA with a peak systolic velocity of 29.5 cm/second.Biphasic waveform in the distal SFA with a peak systolic velocity of 12.1 cm/second.Biphasic waveform in the distal popliteal artery with a peak systolic velocity of 23.3 cm/second.Biphasic waveform in the mid [employer] with a peak systolic velocity of 9.3 cm/second.Biphasic waveform in the DPA with a peak systolic velocity of 29.8 cm/second.Biphasic waveform in the KAYLEN with a peak systolic velocity of 20.5 cm/secondIMPRESSIONModerate to severe bilateral peripheral vascular disease.Electronically signed by: Maco Scales (March 03, 2021 18:00:29)
--- NOTE | 2021-03-03 20:46 | DR.CONSULT ---
CONSULT Consultation for Day of: Date: 03/03/21 Chief Complaint Chief Complaint: Patient with increasing weakness of the last week and change in mental status. Colder extremities and petechiae of both feet. Allergies Allergies Allergy/AdvReac Type Severity Reaction Status Date / Time No Known Drug Allergies Allergy Verified 11/09/19 13:12 History of Present Illness History of Present Illness: 85-year-old female who had been in her usual state of health. Using a walker but oriented to person and place. She was able to feed herself and take care of yourself. Marked changes last week. She had multiple falls with bruising. She is on anticoagulation for atrial fibrillation. Rate controlled with a beta charan. I have been asked to evaluate her for cold lower extremities with petechiae. MRA carried out of her abdomen and lower extremities which is of little value as no contrast was used. Past Medical History Past Medical History: Anemia (Hx of Gi Bleeding in 2019 with no good etiology) and Hypertension Additional Medical History: hx GI bleed Past Surgical History Surgical History: , Mastectomy and Tonsillectomy Family History Family Medical History: Hypertension Social History Does patient currently use any type of tobacco product: No Have you used tobacco products in the last 12 months: No Type of Tobacco Use: None Does any household member use tobacco: No Alcohol Use: None Drug Use: None Medications Home Medications: No Known Drug Allergies Allergy (Verified 11/09/19 13:12) CONTINUE taking the following medications apixaban [Eliquis] 2.5 mg PO DAILY 03/02/21 [History] lisinopril 20 mg PO DAILY 03/02/21 [History] Review of Systems Constitutional: See HPI Eyes: No Symptoms Reported ENT: No Symptoms Reported Respiratory: No Symptoms Reported Cardiovascular: No Symptoms Reported, See HPI, Palpitations, Orthopnea, Paroxysmal Noc. Dyspnea, Edema, Light Headedness and Other; denies Chest Pain Gastrointestinal: No Symptoms Reported and See HPI Skin: No Symptoms Reported Neurological: Other (Family notes increasing weaakness over the last week.) Physical Exam Vital Signs: Temperature 98.1 F Pulse Rate [Right Radial] 87 Pulse Rate 98 Respiratory Rate 20 Blood Pressure [Right Arm] 121/98 Blood Pressure 131/79 O2 Sat by Pulse Oximetry 93 Oriented: Person Eyes: Normal Ear: Normal Nose: Normal Throat: Normal Respiratory: Clear Throughout Cardiovascular: Other (irregularly irregular rhythm. Both feet very cool. No palpable pulses distally . Weakly palpable femoralpulses b/l. Duples LE shows severe arterial disease b/l.) : Other (Question of UTI) Palpation: Normal Tenderness: Normal Skin: Other (Petechiae both feet. Cool feet b/l) Mood Description: Calm Affect: Quiet Speech Pattern: Clear Plan Plan: When I see petechiae like this differential is due to possible sepsis, possible clotting disorder, possible injury on anticoagulation, possible consumption of platelets, possible thrombocytopenia. I am unsure as to the cause of it at this time. I do think there is definitely vascular disease of both lower extremities but I think this is superimposed upon whatever illness that is causing her decline superimposed on dehydration. I would treat her underlying problems with antibiotics and judicious hydration and if she improves we can prepare her kidneys for a dye load and obtain CT aortogram with runoff. I will follw her
[2021-03-03] MEDS: ELIQUIS PO SCH (21:29)
[2021-03-04] MEDS: NYSTATIN OINT TOP SCH ×3 (07:27→21:12)
[2021-03-04] MEDS: NS 1000 ML 1,000 ML IV SCH (09:46)
[2021-03-04] MEDS: ROCEPHIN 1 GRAM IV PREMIX 1 G/50 ML IV.SOLN. IV SCH (09:48)
[2021-03-04] MEDS: LOPRESSOR TAB 50 MG PO SCH ×2 (09:49→20:31)
[2021-03-04] MEDS: ZESTRIL TAB 10 MG PO SCH (09:50)
[2021-03-04] MEDS: ELIQUIS PO SCH ×2 (09:50→20:31)
[2021-03-04 10:32] LABS: BASOPHILS % (AUTO) 0.4 % (0.2-1.0); EOSINOPHILS # (AUTO) 0.1 x10^3/uL (0.0-0.2); EOSINOPHILS % (AUTO) 1.4 % (0.9-2.9); HEMATOCRIT 38.6 % (36.0-47.0); HEMOGLOBIN 12.2 g/dL (12.0-16.0); LYMPHOCYTES # (AUTO) 1.4 X10^3/uL (1.3-2.9); LYMPHOCYTES % (AUTO) 16.3 % (21.0-51.0); MEAN CORPUSCULAR HEMOGLOBIN 25.9 pg (27.0-34.0); MEAN CORPUSCULAR HGB CONC 31.5 g/dL (33.0-35.0); MEAN CORPUSCULAR VOLUME 82.3 fL (80.0-100.0); MEAN PLATELET VOLUME 9.5 fL (7.4-11.0); MONOCYTES # (AUTO) 0.7 x10^3/uL (0.3-0.8); NEUTROPHILS # (AUTO) 6.3 x10^3/uL (2.2-4.8); NEUTROPHILS % (AUTO) 73.9 % (42.0-75.0); PLATELET COUNT 176 X10^3/uL (150.0-450.0); RED BLOOD COUNT 4.69 X10^6/uL (3.5-5.4); RED CELL DISTRIBUTION WIDTH 17.3 % (11.6-16.5); WHITE BLOOD COUNT 8.6 X10^3/uL (3.6-10.0)
[2021-03-04 10:45] LABS: ALBUMIN 2.6 g/dL (3.4-5.0); CALCIUM 8.1 mg/dL (8.5-10.1); CARBON DIOXIDE 22.2 mmol/L (21-32); COR CA(FOR HYPOALB) 9.2 mg/dL (8.5-10.1); CREATININE 1.42 mg/dL (0.55-1.02); TOTAL PROTEIN 6.3 g/dL (6.4-8.2)
[2021-03-05] MEDS: NYSTATIN OINT TOP SCH ×3 (05:25→21:02)
[2021-03-05 06:28] LABS: BASOPHILS % (AUTO) 0.3 % (0.2-1.0); EOSINOPHILS # (AUTO) 0.1 x10^3/uL (0.0-0.2); EOSINOPHILS % (AUTO) 1.6 % (0.9-2.9); HEMATOCRIT 34.6 % (36.0-47.0); LYMPHOCYTES # (AUTO) 1.3 X10^3/uL (1.3-2.9); LYMPHOCYTES % (AUTO) 17.3 % (21.0-51.0); MEAN CORPUSCULAR HEMOGLOBIN 26.4 pg (27.0-34.0); MEAN CORPUSCULAR HGB CONC 31.8 g/dL (33.0-35.0); MEAN PLATELET VOLUME 9.9 fL (7.4-11.0); MONOCYTES # (AUTO) 0.5 x10^3/uL (0.3-0.8); MONOCYTES % (AUTO) 7.3 % (0.0-13.0); NEUTROPHILS # (AUTO) 5.5 x10^3/uL (2.2-4.8); NEUTROPHILS % (AUTO) 73.5 % (42.0-75.0); PLATELET COUNT 168 X10^3/uL (150.0-450.0); RED BLOOD COUNT 4.16 X10^6/uL (3.5-5.4); RED CELL DISTRIBUTION WIDTH 17.2 % (11.6-16.5); WHITE BLOOD COUNT 7.5 X10^3/uL (3.6-10.0)
[2021-03-05 07:03] LABS: ALANINE AMINOTRANSFERASE 46 Units/L (12-78); ALBUMIN 2.3 g/dL (3.4-5.0); ALKALINE PHOSPHATASE 143 Units/L (46-116); ASPARTATE AMINO TRANSFERASE 41 Units/L (15-37); BLOOD UREA NITROGEN 37 mg/dL (7-18); CARBON DIOXIDE 24.8 mmol/L (21-32); CHLORIDE 105 mmol/L (98-107); COR CA(FOR HYPOALB) 9.4 mg/dL (8.5-10.1); SODIUM 136 mmol/L (136-145); TOTAL PROTEIN 5.6 g/dL (6.4-8.2); eGFR NON BLACK RACES 42 (>60)
--- NOTE | 2021-03-05 08:19 | OR.IMMED ---
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
[2021-03-05] MEDS ORDERED: NS 100 ML IV 100 ML IV ONE (09:03)
[2021-03-05] MEDS: ZESTRIL TAB 10 MG PO SCH (09:34)
[2021-03-05] MEDS: ROCEPHIN 1 GRAM IV PREMIX 1 G/50 ML IV.SOLN. IV SCH (09:34)
[2021-03-05] MEDS: ELIQUIS PO SCH ×2 (09:35→21:02)
[2021-03-05] MEDS: LOPRESSOR TAB 50 MG PO SCH ×2 (09:35→21:02)
--- NOTE | 2021-03-05 13:34 | CT ---
HISTORY:Decreased bilateral pedal pulsesStudy: CT angiography abdomen/pelvis with lower extremity runoffComparison:CT 09/05/2019Technique:Multiple axial images of the abdomen pelvis and lower extremities were obtained prior to and after the administration of IV contrast. 3D reconstructions were performed utilizing radial maximum intensity projection imaging. Dose reduction techniques including Automated Exposure Control (AEC) and adjustment of mA and kV were utilized.Findings:There is moderate to severe cardiomegaly with bilateral pleural effusions and atelectasis, greater on the right. Spleen, pancreas, liver and adrenal glands are intact. There is reflux of contrast into the liver suggesting right heart strain. Cholelithiasis noted. There is bilateral renal cortical atrophy and perinephric stranding suggesting renal insufficiency. No hydronephrosis. There is diverticulosis of the distal colon without acute inflammation. Trace amount of free fluid in the pelvis. Appendix is normal. Urinary bladder is decompressed by Howard catheter. There are multilevel thoracolumbar degenerative changes. There is diffuse anasarca. With circumferential edema in the lower legs.There is moderate atherosclerotic plaque throughout aorta without aneurysm or dissection. There is high-grade stenosis of the celiac trunk at its origin. The SMA is patent. There is [id number] stenosis of the proximal left renal artery. BHAVIN is patent. Bilateral common and external iliac arteries are patent.Right lower extremity: There is [id number] stenosis of the distal right HOLE PUNCHER STRAP. Right SFA and popliteal artery are patent. There is poor opacification of the distal calf vessels with scattered multifocal calcified plaque in the anterior and posterior tibial arteries suggesting moderate stenosis.Left lower extremity: The left HOLE PUNCHER STRAP, SFA, and popliteal artery are patent. There is poor opacification of the distal calf vessels with scattered areas of plaque the posterior tibial artery suggesting moderate stenosis.IMPRESSION:No large vessel stenosis or inflow stenosis identified in the lower extremities. There is poor opacification calf vessels which may in part be due to bolus timing. There is suspected moderate multifocal stenosis of the right anterior and posterior tibial arteries and left posterior tibial artery.Normal caliber aorta without dissection or aneurysm. Severe stenosis of the celiac trunk. BHAVIN and SMA are patent.Cardiomegaly with bilateral pleural effusions, anasarca, trace ascites and diffuse lower extremity edema.Electronically signed by: ROMAN EDWARDS (March 05, 2021 13:31:28)
[2021-03-05] MEDS: NS 1000 ML 1,000 ML IV SCH ×2 (15:00→22:30)
[2021-03-06] MEDS: NYSTATIN OINT TOP SCH ×3 (06:07→21:45)
[2021-03-06] MEDS: NS 1000 ML 1,000 ML IV SCH ×5 (06:07→23:44)
[2021-03-06] MEDS: LOPRESSOR TAB 50 MG PO SCH ×2 (09:33→20:35)
[2021-03-06] MEDS: ELIQUIS PO SCH ×2 (09:33→20:35)
[2021-03-06] MEDS: ROCEPHIN 1 GRAM IV PREMIX 1 G/50 ML IV.SOLN. IV SCH (09:34)
[2021-03-06] MEDS: ZESTRIL TAB 10 MG PO SCH (09:34)
[2021-03-06] MEDS: DIFLUCAN PO SCH (10:11)
[2021-03-06 10:16] LABS: ALANINE AMINOTRANSFERASE 42 Units/L (12-78); ALBUMIN 2.6 g/dL (3.4-5.0); ALKALINE PHOSPHATASE 148 Units/L (46-116); ASPARTATE AMINO TRANSFERASE 38 Units/L (15-37); BLOOD UREA NITROGEN 29 mg/dL (7-18); CALCIUM 8.1 mg/dL (8.5-10.1); CARBON DIOXIDE 23.9 mmol/L (21-32); CHLORIDE 106 mmol/L (98-107); COR CA(FOR HYPOALB) 9.2 mg/dL (8.5-10.1); CREATININE 1.19 mg/dL (0.55-1.02); SODIUM 139 mmol/L (136-145); eGFR NON BLACK RACES 46 (>60)
[2021-03-06] MEDS: NYSTATIN SUSP PO SCH ×4 (10:42→20:37)
--- NOTE | 2021-03-06 11:13 | NOTE.SOAP ---
Soap Note Subjective Data Subjective Data: Patient continues to improve in regards to mental status. She is oriented to person and place now. She is taking her own diet. Creatinine has declined 1.3 Objective Data Temperature: 96.9 F Pulse Rate: 92 Respiratory Rate: 20 Blood Pressure: 124/89 O2 Sat by Pulse Oximetry: 97 Objective Data: Both feet remain cool. Moved all toes well. No further changes. Assessment Assessment: Probable sepsis related to UTI with augmentation of pre-existing lower extremity vascular disease . This appears to be improving. Plan Plan: Will pain CT angiogram today. Most likely will be discharged and will deal with the leg problems as an outpatient. I explained her daughter that the purpose of revascularization is to keep her lower extremities but I can make no guarantees about her ability to walk or ambulate with a walker as she has before because of her significant loss of mobility.
--- NOTE | 2021-03-06 11:13 | NOTE.SOAP ---
Soap Note Subjective Data Subjective Data: Patient improved , more alert Objective Data Temperature: 97.9 F Pulse Rate: 76 Respiratory Rate: 17 Blood Pressure: 121/56 Objective Data: More alert , taking diet . No progression of petcheiae. Legs still cool but moves them well. Cr= 1.4 Assessment Assessment: UTI with resulting change in mental status with dehydration and exacerbation of existing vascular disease. Plan Plan: CT angiogram tomorrow and make plan from there.
[2021-03-06] MEDS: REMERON PO SCH (20:36)
[2021-03-07 05:30] LABS: BASOPHILS # (AUTO) 0.1 X10^3/uL (0.0-0.1); BASOPHILS % (AUTO) 1.1 % (0.2-1.0); EOSINOPHILS # (AUTO) 0.1 x10^3/uL (0.0-0.2); EOSINOPHILS % (AUTO) 1.7 % (0.9-2.9); HEMOGLOBIN 10.7 g/dL (12.0-16.0); LYMPHOCYTES # (AUTO) 1.3 X10^3/uL (1.3-2.9); LYMPHOCYTES % (AUTO) 16.3 % (21.0-51.0); MEAN CORPUSCULAR HEMOGLOBIN 26.5 pg (27.0-34.0); MEAN CORPUSCULAR HGB CONC 32.2 g/dL (33.0-35.0); MEAN CORPUSCULAR VOLUME 82.3 fL (80.0-100.0); MEAN PLATELET VOLUME 10.2 fL (7.4-11.0); MONOCYTES # (AUTO) 0.6 x10^3/uL (0.3-0.8); NEUTROPHILS # (AUTO) 6.1 x10^3/uL (2.2-4.8); NEUTROPHILS % (AUTO) 73.9 % (42.0-75.0); PLATELET COUNT 169 X10^3/uL (150.0-450.0); RED BLOOD COUNT 4.01 X10^6/uL (3.5-5.4); RED CELL DISTRIBUTION WIDTH 17.2 % (11.6-16.5); WHITE BLOOD COUNT 8.3 X10^3/uL (3.6-10.0)
[2021-03-07 05:41] LABS: ALANINE AMINOTRANSFERASE 44 Units/L (12-78); ALBUMIN 2.4 g/dL (3.4-5.0); ALKALINE PHOSPHATASE 155 Units/L (46-116); ASPARTATE AMINO TRANSFERASE 42 Units/L (15-37); BLOOD UREA NITROGEN 25 mg/dL (7-18); CALCIUM 7.9 mg/dL (8.5-10.1); CHLORIDE 106 mmol/L (98-107); COR CA(FOR HYPOALB) 9.2 mg/dL (8.5-10.1); CREATININE 1.15 mg/dL (0.55-1.02); SODIUM 138 mmol/L (136-145); TOTAL PROTEIN 5.8 g/dL (6.4-8.2); eGFR NON BLACK RACES 48 (>60)
[2021-03-07 05:58] LABS: ANISOCYTOSIS SLIGHT; BURR CELLS PRESENT; PLATELET MORPHOLOGY COMMENT NORMAL (NORMAL)
[2021-03-07] MEDS: NYSTATIN OINT TOP SCH ×3 (08:25→21:14)
[2021-03-07] MEDS: NS 1000 ML 1,000 ML IV SCH ×3 (08:25→20:43)
[2021-03-07] MEDS: ROCEPHIN 1 GRAM IV PREMIX 1 G/50 ML IV.SOLN. IV SCH (09:41)
[2021-03-07] MEDS: NYSTATIN SUSP PO SCH ×4 (09:42→20:43)
[2021-03-07] MEDS: DIFLUCAN PO SCH (09:42)
[2021-03-07] MEDS: ELIQUIS PO SCH ×2 (09:42→20:39)
[2021-03-07] MEDS: ZESTRIL TAB 10 MG PO SCH (09:42)
[2021-03-07] MEDS: LOPRESSOR TAB 50 MG PO SCH ×2 (09:42→20:39)
[2021-03-07] MEDS: REMERON PO SCH (20:39)
[2021-03-07] MEDS ORDERED: COLACE CAP 100 MG PO ONE ×2 (22:37→22:52)
[2021-03-07] MEDS ORDERED: LINZESS PO ONE ×2 (22:38→22:53)
[2021-03-08] MEDS: NS 1000 ML 1,000 ML IV SCH ×3 (03:27→23:15)
[2021-03-08] MEDS: NYSTATIN OINT TOP SCH ×3 (04:59→21:45)
[2021-03-08 06:34] LABS: BASOPHILS % (AUTO) 0.5 % (0.2-1.0); EOSINOPHILS # (AUTO) 0.1 x10^3/uL (0.0-0.2); EOSINOPHILS % (AUTO) 1.7 % (0.9-2.9); HEMATOCRIT 36.3 % (36.0-47.0); HEMOGLOBIN 11.5 g/dL (12.0-16.0); LYMPHOCYTES # (AUTO) 1.5 X10^3/uL (1.3-2.9); LYMPHOCYTES % (AUTO) 17.7 % (21.0-51.0); MEAN CORPUSCULAR HGB CONC 31.6 g/dL (33.0-35.0); MEAN CORPUSCULAR VOLUME 82.4 fL (80.0-100.0); MEAN PLATELET VOLUME 9.4 fL (7.4-11.0); MONOCYTES # (AUTO) 0.5 x10^3/uL (0.3-0.8); MONOCYTES % (AUTO) 5.7 % (0.0-13.0); NEUTROPHILS # (AUTO) 6.2 x10^3/uL (2.2-4.8); NEUTROPHILS % (AUTO) 74.4 % (42.0-75.0); PLATELET COUNT 174 X10^3/uL (150.0-450.0); RED BLOOD COUNT 4.41 X10^6/uL (3.5-5.4); RED CELL DISTRIBUTION WIDTH 17.5 % (11.6-16.5); WHITE BLOOD COUNT 8.3 X10^3/uL (3.6-10.0)
[2021-03-08 06:47] LABS: ALANINE AMINOTRANSFERASE 40 Units/L (12-78); ALBUMIN 2.1 g/dL (3.4-5.0); ALKALINE PHOSPHATASE 154 Units/L (46-116); ASPARTATE AMINO TRANSFERASE 35 Units/L (15-37); BLOOD UREA NITROGEN 21 mg/dL (7-18); CALCIUM 8.1 mg/dL (8.5-10.1); CARBON DIOXIDE 18.5 mmol/L (21-32); CHLORIDE 107 mmol/L (98-107); COR CA(FOR HYPOALB) 9.6 mg/dL (8.5-10.1); CREATININE 1.08 mg/dL (0.55-1.02); SODIUM 136 mmol/L (136-145); TOTAL PROTEIN 5.9 g/dL (6.4-8.2); eGFR NON BLACK RACES 51 (>60)
[2021-03-08] MEDS: ELIQUIS PO SCH ×2 (09:04→20:01)
[2021-03-08] MEDS: ROCEPHIN 1 GRAM IV PREMIX 1 G/50 ML IV.SOLN. IV SCH (09:04)
[2021-03-08] MEDS: LOPRESSOR TAB 50 MG PO SCH ×2 (09:04→20:02)
[2021-03-08] MEDS: DIFLUCAN PO SCH (09:04)
[2021-03-08] MEDS: ZESTRIL TAB 10 MG PO SCH (09:04)
[2021-03-08] MEDS: NYSTATIN SUSP PO SCH ×4 (09:04→20:03)
[2021-03-08] MEDS: REMERON PO SCH (20:03)
[2021-03-09] MEDS: NYSTATIN OINT TOP SCH ×2 (04:59→13:25)
[2021-03-09 06:07] LABS: BASOPHILS % (AUTO) 0.3 % (0.2-1.0); EOSINOPHILS # (AUTO) 0.1 x10^3/uL (0.0-0.2); HEMATOCRIT 32.7 % (36.0-47.0); HEMOGLOBIN 10.4 g/dL (12.0-16.0); LYMPHOCYTES # (AUTO) 1.1 X10^3/uL (1.3-2.9); LYMPHOCYTES % (AUTO) 10.3 % (21.0-51.0); MEAN CORPUSCULAR HEMOGLOBIN 26.3 pg (27.0-34.0); MEAN CORPUSCULAR HGB CONC 31.9 g/dL (33.0-35.0); MEAN CORPUSCULAR VOLUME 82.5 fL (80.0-100.0); MEAN PLATELET VOLUME 9.7 fL (7.4-11.0); MONOCYTES # (AUTO) 0.6 x10^3/uL (0.3-0.8); MONOCYTES % (AUTO) 5.6 % (0.0-13.0); NEUTROPHILS # (AUTO) 8.4 x10^3/uL (2.2-4.8); NEUTROPHILS % (AUTO) 82.8 % (42.0-75.0); PLATELET COUNT 167 X10^3/uL (150.0-450.0); RED BLOOD COUNT 3.96 X10^6/uL (3.5-5.4); RED CELL DISTRIBUTION WIDTH 17.5 % (11.6-16.5); WHITE BLOOD COUNT 10.2 X10^3/uL (3.6-10.0)
[2021-03-09 06:16] LABS: ALANINE AMINOTRANSFERASE 35 Units/L (12-78); ALBUMIN 2.3 g/dL (3.4-5.0); ALKALINE PHOSPHATASE 144 Units/L (46-116); ASPARTATE AMINO TRANSFERASE 28 Units/L (15-37); BLOOD UREA NITROGEN 18 mg/dL (7-18); CARBON DIOXIDE 24.2 mmol/L (21-32); CHLORIDE 107 mmol/L (98-107); COR CA(FOR HYPOALB) 9.4 mg/dL (8.5-10.1); CREATININE 1.12 mg/dL (0.55-1.02); SODIUM 138 mmol/L (136-145); TOTAL PROTEIN 5.7 g/dL (6.4-8.2); eGFR NON BLACK RACES 49 (>60)
[2021-03-09] MEDS: ROCEPHIN 1 GRAM IV PREMIX 1 G/50 ML IV.SOLN. IV SCH (08:11)
[2021-03-09] MEDS: ZESTRIL TAB 10 MG PO SCH (08:14)
[2021-03-09] MEDS: NYSTATIN SUSP PO SCH ×2 (08:14→12:22)
[2021-03-09] MEDS: DIFLUCAN PO SCH (08:14)
[2021-03-09] MEDS: ELIQUIS PO SCH (08:14)
[2021-03-09] MEDS: LOPRESSOR TAB 50 MG PO SCH (08:15)
[2021-03-09 11:28] VITALS: BP 118/79
== END 2021-03-09 15:45 | DRG 690 ==
LOC: MED/SURG 07:55 → ER 07:55 → MED/SURG 12:05
PROVIDERS: ADMIT Obstetrics & Gynecology Obstetrics; ATTEND Obstetrics & Gynecology Obstetrics
DX: E86.0 Dehydration; I13.10 Hypertensive heart and chronic kidney disease without heart failure, with stage 1 through stage 4 chronic kidney disease, or unspecified chronic kidney disease; E87.6 Hypokalemia; R53.1 Weakness; Z20.822 Contact with and (suspected) exposure to COVID-19; N39.0 Urinary tract infection, site not specified; R58 Hemorrhage, not elsewhere classified; I77.4 Celiac artery compression syndrome; D68.9 Coagulation defect, unspecified; I70.209 Unspecified atherosclerosis of native arteries of extremities, unspecified extremity; I48.20 Chronic atrial fibrillation, unspecified; R41.82 Altered mental status, unspecified; R26.2 Difficulty in walking, not elsewhere classified; N18.30 Chronic kidney disease, stage 3 unspecified

== ENCOUNTER 2021-03-14 11:38 | Inpatient (IN) ==
--- NOTE | 2021-03-14 12:11 | DR.AMS ---
HPI Time Seen Time Seen by Provider: 03/14/21 12:03 HPI Comment HPI Comment: Brought over by NH with no paperwork with reports of "unresponsiveness" since this morning; unable to give a baseline for pt but reports family is videoing everything they are doing; pt is currently mumbling/groaning in response to verbal and physical stimuli; nurse reports she's usually alert, responsive and talkative hx of afib, htn, ckd COVID-19 Coronavirus risk:travel/contact w/high risk person: No Has patient experienced Coronavirus symptoms: No PMH PMH Past Medical History: Anemia (Hx of Gi Bleeding in 2019 with no good etiology) and Hypertension Past Surgical History: Yes Surgical History: , Mastectomy and Tonsillectomy Family History Family Medical History: Hypertension Social History Do you use any recreational Drugs:: No Travel Risk Coronavirus risk:travel/contact w/high risk person: No Has patient experienced Coronavirus symptoms: No ROS Review of Systems Unable to Obtain Due To: Altered mental status PE Vitals Vital Signs: Temp Pulse Pulse Resp BP BP BP 03/14/21 14:00 92.1 F L 03/14/21 13:39 70 17 03/14/21 11:53 59 L 18 127/60 03/14/21 11:40 71 71 14 117/88 118/50 03/09/21 11:27 118/79 03/08/21 16:00 122/94 Pulse Ox 03/14/21 14:00 03/14/21 13:39 100 03/14/21 11:53 100 03/14/21 11:40 96 03/09/21 11:27 03/08/21 16:00 General Limitations: Altered Mental Status General Appearance: Obtunded Head Head Exam: Normal Inspection and Atraumatic Eyes Eye exam: Normal Appearance Neck Neck Exam: Normal Inspection, Full ROM and Trachea Midline Chest Chest Inspection: Normal Inspection and Symmetric Chest Wall Rise Respiratory Respiratory Exam: Normal Lung Sounds Bilat Cardiovascular Cardiovascular Exam: Regular Rate and Normal Rhythm Abdominal Exam Abdominal Exam: Normal Inspection, Normal Bowel Sounds, Soft and Tenderness (grimaces minimally with palpation) Extremities Extremities Exam: Edema (to mid thigh, lower third of legs wrapped) Skin Skin Exam: Warm, Dry, Intact and Normal Color MDM Additional Information Obtained Additional Information Obtained From: Old Records Differential Diagnosis Metabolic: Dehydration Structural: CVA Infectious: Sepsis and UTI COURSE Reevaluation 1st: Unchanged 2nd: Unchanged (daughter at bedside; reports mom is dnr) Consultation Call Returned: 15:00 (Dr Bolden accepts admission) ROR Labs Reviewed Laboratory Results Reviewed?: Yes Result Diagrams: 03/14/21 12:15 03/14/21 12:15 Laboratory: WBC 8.8 X10^3/uL (3.6-10.0) 03/14/21 12:15 RBC 4.32 X10^6/uL (3.5-5.4) 03/14/21 12:15 Hgb 11.2 g/dL (12.0-16.0) L 03/14/21 12:15 Hct 35.5 % (36.0-47.0) L 03/14/21 12:15 MCV 82.3 fL (80.0-100.0) 03/14/21 12:15 MCH 26.1 pg (27.0-34.0) L 03/14/21 12:15 MCHC 31.6 g/dL (33.0-35.0) L 03/14/21 12:15 RDW 17.7 % (11.6-16.5) H 03/14/21 12:15 Plt Count 126 X10^3/uL (150.0-450.0) L 03/14/21 12:15 MPV 9.7 fL (7.4-11.0) 03/14/21 12:15 Neut % (Auto) 82.8 % (42.0-75.0) H 03/14/21 12:15 Lymph % (Auto) 10.1 % (21.0-51.0) L 03/14/21 12:15 Norman % (Auto) 6.2 % (0.0-13.0) 03/14/21 12:15 Eos % (Auto) 0.6 % (0.9-2.9) L 03/14/21 12:15 Baso % (Auto) 0.3 % (0.2-1.0) 03/14/21 12:15 Neut # (Auto) 7.3 x10^3/uL (2.2-4.8) H 03/14/21 12:15 Lymph # (Auto) 0.9 X10^3/uL (1.3-2.9) L 03/14/21 12:15 Norman # (Auto) 0.5 x10^3/uL (0.3-0.8) 03/14/21 12:15 Eos # (Auto) 0.1 x10^3/uL (0.0-0.2) 03/14/21 12:15 Baso # (Auto) 0.0 X10^3/uL (0.0-0.1) 03/14/21 12:15 Absolute Nucleated RBC 0.9 /100WBC 03/14/21 12:15 Sodium 141 mmol/L (136-145) 03/14/21 12:15 Corrected Sodium 141 mmol/L (136-145) 03/14/21 12:15 Potassium 4.5 mmol/L (3.5-5.1) 03/14/21 12:15 Chloride 109 mmol/L (98-107) H 03/14/21 12:15 Carbon Dioxide 23.3 mmol/L (21-32) 03/14/21 12:15 BUN 25 mg/dL (7-18) H 03/14/21 12:15 Creatinine 0.98 mg/dL (0.55-1.02) 03/14/21 12:15 Est GFR (MDRD) Af Amer > 60 (>60) 03/14/21 12:15 Est GFR (MDRD) Non-Af 58 (>60) L 03/14/21 12:15 Glucose 119 mg/dL (65-99) H 03/14/21 12:15 Calcium 8.7 mg/dL (8.5-10.1) 03/14/21 12:15 Corrected Calcium 9.9 mg/dL (8.5-10.1) 03/14/21 12:15 Total Bilirubin 1.10 mg/dL (0.2-1.0) H 03/14/21 12:15 AST 59 Units/L (15-37) H 03/14/21 12:15 ALT 47 Units/L (12-78) 03/14/21 12:15 Alkaline Phosphatase 209 Units/L (46-116) H 03/14/21 12:15 Creatine Kinase 191 Units/L (26-192) 03/14/21 12:15 CK-MB (CK-2) 9.4 ng/mL (0-4.0) H* 03/14/21 12:15 CK/CKMB % Calc 4.9 % (<4) 03/14/21 12:15 Troponin I 0.04 ng/mL (0-1.5) 03/14/21 12:15 Total Protein 6.6 g/dL (6.4-8.2) 03/14/21 12:15 Albumin 2.5 g/dL (3.4-5.0) L 03/14/21 12:15 Globulin 4.1 g/dL (2.5-4.5) 03/14/21 12:15 Albumin/Globulin Ratio 0.6 Ratio (1.1-2.1) L 03/14/21 12:15 XRAY XRAY Interpreted by: Radiologist X-ray Results: ct abd: 1. Cardiomegaly with pleural effusions and body wall anasarca suggesting cardiac dysfunction 2. Vascular calcifications, spine DJD, renal atrophy, cholelithiasis, colonic diverticulosis and spine DJD, all similar to the prior. 3. Small amount of gas seen in the urinary bladder with no Howard catheter in position. Correlate clinically for any evidence of infection. 4. Mild stranding adjacent to the rectum correlate clinically for infectious lesion or neoplasm. ct brain: 1. No acute intracranial hemorrhage 2. Temporal lobe atrophy most pronounced, with overall general cerebral atrophy and microangiopathy noted. Temporal lobe atrophy appears to have progressed from the prior. Opioid Opioid Risk Tool Age (Jordon box if 16-45): Yes History of Preadolescent Sexual Abuse: No Total: 1 Total Score Risk Category: Low Risk Copyright: Tor ALCALA predicting aberrant behaviors Diagnosis Discharge Problem: Chronic a-fib, Pleural effusion, Anasarca AMI (acute myocardial infarction) Qualifiers: Myocardial infarction type: non-ST elevation myocardial infarction Qualified Code(s): I21.4 - Non-ST elevation (NSTEMI) myocardial infarction AMS (altered mental status) Qualifiers: Altered mental status type: stupor Qualified Code(s): R40.1 - Stupor Hypothermia Qualifiers: Encounter type: initial encounter Qualified Code(s): T68.XXXA - Hypothermia, initial encounter Instructions Forms: Patient Portal Social Distancing
[2021-03-14 12:46] LABS: EOSINOPHILS # (AUTO) 0.1 x10^3/uL (0.0-0.2)
[2021-03-14 12:49] LABS: BASOPHILS % (AUTO) 0.3 % (0.2-1.0); EOSINOPHILS % (AUTO) 0.6 % (0.9-2.9); HEMATOCRIT 35.5 % (36.0-47.0); HEMOGLOBIN 11.2 g/dL (12.0-16.0); LYMPHOCYTES # (AUTO) 0.9 X10^3/uL (1.3-2.9); LYMPHOCYTES % (AUTO) 10.1 % (21.0-51.0); MEAN CORPUSCULAR HEMOGLOBIN 26.1 pg (27.0-34.0); MEAN CORPUSCULAR HGB CONC 31.6 g/dL (33.0-35.0); MEAN CORPUSCULAR VOLUME 82.3 fL (80.0-100.0); MEAN PLATELET VOLUME 9.7 fL (7.4-11.0); MONOCYTES # (AUTO) 0.5 x10^3/uL (0.3-0.8); MONOCYTES % (AUTO) 6.2 % (0.0-13.0); NEUTROPHILS # (AUTO) 7.3 x10^3/uL (2.2-4.8); NEUTROPHILS % (AUTO) 82.8 % (42.0-75.0); PLATELET COUNT 126 X10^3/uL (150.0-450.0); RED BLOOD COUNT 4.32 X10^6/uL (3.5-5.4); RED CELL DISTRIBUTION WIDTH 17.7 % (11.6-16.5); WHITE BLOOD COUNT 8.8 X10^3/uL (3.6-10.0)
--- NOTE | 2021-03-14 13:30 | CT ---
CT head without contrastIndication: Generalized edema. Altered mental status.COMPARISONJan2019 CTTECHNIQUEAxial images from the skullbase to the vertex without contrast. Coronal and sagittal reformats provided.FINDINGSThere is no acute intracranial hemorrhage, mass or mass effect. Diffuse cerebral atrophy, most pronounced in the temporal lobes noted, [id number]. Periventricular white matter changes of microangiopathy noted. No extra-axial fluid collection or large area of hypoattenuation to suggest acute infarction identified.Review of bone windows demonstrate no osseous lesion. Visualized paranasal sinuses and mastoid air cells are clear.IMPRESSION1. No acute intracranial hemorrhage2. Temporal lobe atrophy most pronounced, with overall general cerebral atrophy and microangiopathy noted. Temporal lobe atrophy appears to have progressed from the prior.Electronically signed by: SEBASTIAN WRIGHT (March 14, 2021 13:29:14)
--- NOTE | 2021-03-14 13:35 | CT ---
CT abdomen and pelvis without contrastIndication: Abdominal painTECHNIQUEHelical images through the abdomen and pelvis without contrast. Coronal and sagittal reformats provided.Comparison: March 05, 2021 CT angiogramFINDINGS: Limited images through the lower chest again demonstrates moderate to large right effusion and small to moderate left effusion with dependent atelectasis. There is cardiomegaly with few coronary artery calcifications. Body wall anasarca again noted, overall similar to the prior. Review of bone windows demonstrate spine and pelvis DJD without new destructive osseous lesion.Abdomen: The liver, spleen and pancreas show no new acute abnormality. Adrenal glands are normal. Renal atrophy noted with perinephric stranding seen. Aortoiliac plaque noted. Colonic diverticulosis is noted. There is gallstone at the neck of the gallbladder, similar to the prior.The stomach and small bowel are normal. Appendix is normal.Pelvis: Urinary bladder contains a small focus of gas. Uterus and adnexa show no acute abnormality. Rectum shows trending caudally near the anus in the peroneal soft tissues on axial image 99-101.IMPRESSION1. Cardiomegaly with pleural effusions and body wall anasarca suggesting cardiac dysfunction2. Vascular calcifications, spine DJD, renal atrophy, cholelithiasis, colonic diverticulosis and spine DJD, all similar to the prior.3. Small amount of gas seen in the urinary bladder with no Howard catheter in position. Correlate clinically for any evidence of infection.4. Mild stranding adjacent to the rectum correlate clinically for infectious lesion or neoplasm.Electronically signed by: SEBASTIAN WRIGHT (March 14, 2021 13:32:55)
[2021-03-14 13:37] LABS: ALANINE AMINOTRANSFERASE 47 Units/L (12-78); ALBUMIN 2.5 g/dL (3.4-5.0); ALKALINE PHOSPHATASE 209 Units/L (46-116); ASPARTATE AMINO TRANSFERASE 59 Units/L (15-37); BLOOD UREA NITROGEN 25 mg/dL (7-18); CALCIUM 8.7 mg/dL (8.5-10.1); CARBON DIOXIDE 23.3 mmol/L (21-32); CHLORIDE 109 mmol/L (98-107); CKMB % 4.9 % (<4); COR CA(FOR HYPOALB) 9.9 mg/dL (8.5-10.1); COR NA(FOR HYPERGLY) 141 mmol/L (136-145); CREATINE KINASE 191 Units/L (26-192); CREATININE 0.98 mg/dL (0.55-1.02); SODIUM 141 mmol/L (136-145); TOTAL PROTEIN 6.6 g/dL (6.4-8.2); TROPONIN I 0.04 ng/mL (0-1.5); eGFR NON BLACK RACES 58 (>60)
[2021-03-14 13:40] LABS: CREATINE KINASE MB 9.4 ng/mL (0-4.0)
[2021-03-14] MEDS ORDERED: NITRO-BID OINT 2% UD (E.R. USE ONLY) TD ONE (14:46)
[2021-03-14] MEDS ORDERED: HEPARIN SODIUM IN D5W 25,000 UNITS/500 ML BAG IV PRN (14:48)
[2021-03-14] MEDS ORDERED: ZOFRAN INJ 4 MG VIAL IVP PRN (14:50)
[2021-03-14] MEDS ORDERED: NITRO-BID OINT 2% UD (E.R. USE ONLY) ONE (16:28)
[2021-03-14] MEDS ORDERED: MORPHINE SULFATE INJ 2 MG INJ ONE (16:28)
[2021-03-14] MEDS ORDERED: HEPARIN SODIUM IN D5W 25,000 UNITS/500 ML BAG IV ONE (16:29)
[2021-03-14] MEDS ORDERED: HEPARIN SODIUM INJ 5000 UNITS ONE (17:01)
[2021-03-14] MEDS: MORPHINE SULFATE INJ 2 MG INJ IVP PRN (17:07)
[2021-03-14 17:47] LABS: BILIRUBIN,URINE NEGATIVE (NEGATIVE); BLOOD/HEMOGLOBIN,URINE NEGATIVE (NEGATIVE); GLUCOSE, URINE NEGATIVE (NEGATIVE); KETONES,URINE NEGATIVE (NEGATIVE); LEUKOCYTE ESTERASE ,URINE NEGATIVE (NEGATIVE); NITRITES,URINE NEGATIVE (NEGATIVE); PROTEIN,URINE 1+ (NEGATIVE); UROBILINOGEN,URINE NORMAL (NORMAL)
[2021-03-14 17:51] LABS: APPEARANCE,URINE CLEAR (CLEAR); COLOR,URINE YELLOW (YELLOW)
[2021-03-14 17:58] LABS: BACTERIA,URINE NEGATIVE /HPF (NEGATIVE); MUCUS,URINE RARE /HPF (NEGATIVE); RBC,URINE 0-2 /HPF (0-3); SQUAMOUS EPITHELIAL CELL,UR NUMEROUS /HPF (NEGATIVE)
[2021-03-14 19:17] LABS: CKMB % 5.9 % (<4); TROPONIN I 0.05 ng/mL (0-1.5)
[2021-03-14 19:19] LABS: CREATINE KINASE MB 7.6 ng/mL (0-4.0)
[2021-03-15 01:08] LABS: CKMB % 5.9 % (<4); TROPONIN I 0.04 ng/mL (0-1.5)
[2021-03-15 01:10] LABS: CREATINE KINASE MB 6.3 ng/mL (0-4.0)
[2021-03-15 06:38] LABS: BASOPHILS % (AUTO) 0.2 % (0.2-1.0); EOSINOPHILS # (AUTO) 0.1 x10^3/uL (0.0-0.2); EOSINOPHILS % (AUTO) 0.9 % (0.9-2.9); HEMATOCRIT 28.9 % (36.0-47.0); HEMOGLOBIN 9.1 g/dL (12.0-16.0); LYMPHOCYTES # (AUTO) 1.1 X10^3/uL (1.3-2.9); LYMPHOCYTES % (AUTO) 14.1 % (21.0-51.0); MEAN CORPUSCULAR HEMOGLOBIN 25.7 pg (27.0-34.0); MEAN CORPUSCULAR HGB CONC 31.6 g/dL (33.0-35.0); MEAN CORPUSCULAR VOLUME 81.3 fL (80.0-100.0); MEAN PLATELET VOLUME 10.2 fL (7.4-11.0); MONOCYTES # (AUTO) 0.6 x10^3/uL (0.3-0.8); MONOCYTES % (AUTO) 8.3 % (0.0-13.0); NEUTROPHILS # (AUTO) 5.8 x10^3/uL (2.2-4.8); NEUTROPHILS % (AUTO) 76.5 % (42.0-75.0); PLATELET COUNT 134 X10^3/uL (150.0-450.0); RED BLOOD COUNT 3.55 X10^6/uL (3.5-5.4); RED CELL DISTRIBUTION WIDTH 18.4 % (11.6-16.5); WHITE BLOOD COUNT 7.6 X10^3/uL (3.6-10.0)
[2021-03-15 07:04] LABS: ALANINE AMINOTRANSFERASE 36 Units/L (12-78); ALKALINE PHOSPHATASE 152 Units/L (46-116); ASPARTATE AMINO TRANSFERASE 38 Units/L (15-37); BLOOD UREA NITROGEN 26 mg/dL (7-18); CHLORIDE 111 mmol/L (98-107); COR CA(FOR HYPOALB) 9.6 mg/dL (8.5-10.1); CREATININE 1.06 mg/dL (0.55-1.02); SODIUM 144 mmol/L (136-145); TOTAL PROTEIN 5.2 g/dL (6.4-8.2); eGFR NON BLACK RACES 53 (>60)
[2021-03-15] MEDS ORDERED: NS 100 ML IV 100 ML IV ONE ×2 (10:02→19:10)
[2021-03-15 10:07] VITALS: BMI 40.8
[2021-03-15] MEDS: LOVENOX INJ 30 MG SYR SC SCH ×2 (10:32→20:22)
--- NOTE | 2021-03-15 10:36 | RAD ---
Chest AP portableIndication: Hypertension. DyspneaComparison March 02, 2021FINDINGSThere is cardiomegaly with monitoring leads obscuring significant detail. There is no pneumothorax. Effusions are possible. Mild increased interstitial markings are noted without severe edema.IMPRESSIONCardiomegaly and small effusions possible without severe edema.Electronically signed by: SEBASTIAN WRIGHT (March 15, 2021 10:34:44)
--- NOTE | 2021-03-15 15:47 | RAD ---
EXAM: RIGHT HUMERUS X-RAY SERIESHISTORY: Pain.TECHNIQUE: 2 viewsCOMPARISON: None available.FINDINGS:There is no acute bony fracture, or joint subluxation or dislocation seen. No focal bone erosion or sclerosis is seen. No evidence for inflammatory or degenerative arthritis is seen. No soft tissue emphysema, radiodense soft tissue abnormality or foreign body is seen.IMPRESSION:1. No acute bony fracture, or joint subluxation or dislocation seen.2. No soft tissue emphysema, radiodense soft tissue abnormality or foreign body seen.Electronically signed by: Michael Castillo (March 15, 2021 15:44:31)
--- NOTE | 2021-03-15 16:00 | RAD ---
Right forearm two views 3 imagesIndication: Forearm painFINDINGSThere is mild trochlear DJD. Minimal wrist DJD noted. Chondrocalcinosis seen at the triangular fibrocartilageIMPRESSIONNo acute right forearm fractureElectronically signed by: SEBASTIAN WRIGHT (March 15, 2021 15:58:26)
--- NOTE | 2021-03-15 19:59 | DR.H&P ---
H&P - History & Physical for Day of: H&P Date: 03/14/21 - Chief Complaint Chief Complaint: UNRESPONSIVE, SWELLING - History of Present Illness History of Present Illness: IS A 85 YEAR OLD APTIENT OF . SHE WAS BROUGHT TO THE ER BY [facility] STAFF DUE TO REPORTS OF PATIENT BEING UNRESPONSIVE SINCE MORNING ROUNDS AT THE JAIL. UPON ARRIVAL TO THE ER, PATIENT MOANS IN RESPONSE TO VERBAL AND PHYSICAL STIMULI. SHE DOES NOT ANSWER QUESTIONS FOR FOLLOW COMMANDS APPROPRIATELY. PATIENT IS DROWSY AND LETHARGIC. SHE IS NOTED TO HAVE ABDOMINAL DISTENTION AND GENERALIZED SWELLING. SHE HAS A PMH OF A-FIB, HTN, CKD, ANEMIA, , MASTECTOMY, AND TONSILLECTOMY. ON EXAMINATION, HEART RATE IS NORMAL. SHE IS NOTED TO BE IN ATRAIL FIBRILLATION. SHE CURRENTLY TAKES ELIQUIS 2.5MG PO DAILY AND METOPROLOL 100MG PO BID AT THE JAIL FOR TREATMENT OF A-FIB. ON ARRIVAL TO THE ER, VITALS WERE 92.1-71-19-98%-117/88. LABS WERE OBTAINED. ABNORMAL LAB VALUES INCLUDE THE FOLLOWING: HGB 11.2, HCT 35.5, INR 1.83, CHLORIDE 109, BUN 25, GLUCOSE 119, TOTAL BILI 1.10, AST 59, ALK PHOS 209, CK-MB 9.4, ALBUMIN 2.5. URINALYSIS OBTAINED AND WAS UNREMARKABLE. COVID-19 NEGATIVE. BLOOD CULTURES WERE SET UP. A BRAIN CT WAS OBTAINED AND REVEALED: 1. No acute intracranial hemorrhage 2. Temporal lobe atrophy most pronounced, with overall general cerebral atrophy and microangiopathy noted. Temporal lobe atrophy appears to have progressed from the prior. EKG REVEALED: ATRIAL FIBRILLATION WITH HR 72. A CHEST CTA WAS OBTAINED AND REVEALED: 1. Cardiomegaly with pleural effusions and body wall anasarca suggesting cardiac dysfunction 2. Vascular calcifications, spine DJD, renal atrophy, cholelithiasis, colonic diverticulosis and spine DJD, all similar to the prior. 3. Small amount of gas seen in the urinary bladder with no Howard catheter in position. Correlate clinically for any evidence of infection. 4. Mild stranding adjacent to the rectum correlate clinically for infectious lesion or neoplasm. A BEAR HUGGER WAS PLACED ON PATIENT DUE TO HYPOTHERMIA. IN THE ER, SHE WAS GIVEN NITROBID OINTMENT X 1 DOSE. SHE WAS ADMITTED TO THE HOSPITAL FOR FURTHER EVALUATION AND TREATMENT OF AMS, A- FIB, HYPOTHERMIA, PLEURAL EFFUSION, ANASARCA, AND RULE OUT ACUTE [place]. SHE WAS STARTED ON A HEPARIN DRIP, MORPHINE SULFATE 2MG IV Q6H PRN PAIN, ZOFRAN 4MG IV Q8H PRN. WE PLANNED TO OBTAIN SERIAL CARDIAC ENZYMES AND EKGS AND A CHEST XRAY IN THE MORNING. TIME SPENT ON CLINICAL ASSESSMENT, REVIEWING LABS AND IMAGING, DECISION MAKING, AND DOCUMENTATION WAS GREATER THAN 75 MINUTES. - Past Medical History Past Medical History: Anemia (Hx of Gi Bleeding in 2019 with no good etiology), Hypertension, Renal Disease Additional Medical History: hx GI bleed, A-FIB, - Past Surgical History Surgical History: , Mastectomy, Tonsillectomy - Family History Family Medical History: Hypertension - Social History Does any household member use tobacco: No Alcohol Use: None Drug Use: None - Medications Home Medications: No Known Drug Allergies Allergy (Verified 11/09/19 13:12) CONTINUE taking the following medications nystatin 100,000 ml PO QID 03/15/21 [History] - Review of Systems Constitutional: Weakness Eyes: No Symptoms Reported ENT: No Symptoms Reported Respiratory: No Symptoms Reported Cardiovascular: See HPI Gastrointestinal: No Symptoms Reported Genitourinary: No Symptoms Reported Musculoskeletal: No Symptoms Reported Skin: No Symptoms Reported Neurological: See HPI, Weakness, Confusion - Physical Exam Vital Signs: Temperature 96.7 F Pulse Rate [Left Radial] 78 Pulse Rate 90 Respiratory Rate 15 Blood Pressure [Left Arm] 102/68 Blood Pressure [Right Arm] 118/79 Blood Pressure 101/72 O2 Sat by Pulse Oximetry 100 Oriented: Not Oriented Eyes: Normal Ear: Normal Nose: Normal Throat: Normal Respiratory: Diminished Throughout Cardiovascular: Tachycardia, Irregular : Normal Auscultation: Bowel Sounds: Normal Palpation: Normal Tenderness: Normal Skin: Normal Musculoskeletal: Normal Psychiatric: Normal Mood Description: Calm Affect: Normal Speech Pattern: Clear - Assessment/Plan (1) Atrial fibrillation Qualifiers: Atrial fibrillation type: unspecified Qualified Code(s): I48.91 - Unspecified atrial fibrillation Status: Acute Plan: ADMIT, GROUNDHAND, HEPARIN DRIP, MORPHINE SULFATE 2MG IV Q6H PRN PAIN, ZOFRAN 4MG IV Q8H PRN. (2) Anasarca Status: Acute (3) Chest pain, rule out acute myocardial infarction Status: Acute (4) AMS (altered mental status) Qualifiers: Altered mental status type: stupor Qualified Code(s): R40.1 - Stupor Status: Acute (5) Hypothermia Qualifiers: Encounter type: initial encounter Qualified Code(s): T68.XXXA - Hypothermia, initial encounter Status: Acute (6) Pleural effusion Status: Acute - Allergies Allergies/Adverse Reactions: Allergies Allergy/AdvReac Type Severity Reaction Status Date / Time No Known Drug Allergies Allergy Verified 11/09/19 13:12
[2021-03-15] MEDS: NYSTATIN CREAM TOP SCH (20:34)
[2021-03-16] MEDS: MORPHINE SULFATE INJ 2 MG INJ IVP PRN (05:54)
[2021-03-16 06:12] LABS: BASOPHILS % (AUTO) 0.2 % (0.2-1.0); EOSINOPHILS # (AUTO) 0.1 x10^3/uL (0.0-0.2); EOSINOPHILS % (AUTO) 0.8 % (0.9-2.9); HEMATOCRIT 27.4 % (36.0-47.0); HEMOGLOBIN 8.7 g/dL (12.0-16.0); LYMPHOCYTES # (AUTO) 0.9 X10^3/uL (1.3-2.9); LYMPHOCYTES % (AUTO) 11.4 % (21.0-51.0); MEAN CORPUSCULAR HEMOGLOBIN 25.9 pg (27.0-34.0); MEAN CORPUSCULAR HGB CONC 31.7 g/dL (33.0-35.0); MEAN CORPUSCULAR VOLUME 81.7 fL (80.0-100.0); MEAN PLATELET VOLUME 9.4 fL (7.4-11.0); MONOCYTES # (AUTO) 0.5 x10^3/uL (0.3-0.8); MONOCYTES % (AUTO) 6.5 % (0.0-13.0); NEUTROPHILS # (AUTO) 6.1 x10^3/uL (2.2-4.8); NEUTROPHILS % (AUTO) 81.1 % (42.0-75.0); PLATELET COUNT 126 X10^3/uL (150.0-450.0); RED BLOOD COUNT 3.36 X10^6/uL (3.5-5.4); RED CELL DISTRIBUTION WIDTH 19.1 % (11.6-16.5); WHITE BLOOD COUNT 7.5 X10^3/uL (3.6-10.0)
[2021-03-16 06:25] LABS: ALANINE AMINOTRANSFERASE 33 Units/L (12-78); ALKALINE PHOSPHATASE 149 Units/L (46-116); ASPARTATE AMINO TRANSFERASE 42 Units/L (15-37); BLOOD UREA NITROGEN 26 mg/dL (7-18); CALCIUM 8.2 mg/dL (8.5-10.1); CARBON DIOXIDE 24.6 mmol/L (21-32); CHLORIDE 110 mmol/L (98-107); COR CA(FOR HYPOALB) 9.8 mg/dL (8.5-10.1); CREATININE 1.01 mg/dL (0.55-1.02); SODIUM 142 mmol/L (136-145); TOTAL PROTEIN 5.2 g/dL (6.4-8.2); eGFR NON BLACK RACES 56 (>60)
[2021-03-16] MEDS: LOVENOX INJ 30 MG SYR SC SCH ×2 (08:56→21:18)
--- NOTE | 2021-03-16 09:20 | RAD ---
HISTORYSOBSTUDYCHEST, 1 VIEWCOMPARISONPortable chest March 15, 2021FINDINGSThe trachea is midline. The cardiac silhouette is enlarged but stable. There is central vascular congestion and small effusion right lung base. The lungs are clear without focal infiltrate or effusion. The bony thorax is unremarkable.IMPRESSIONCardiomegaly central vascular congestion and increasing pleural effusion right lung base compared to yesterdays film.Electronically signed by: ESPINOZA ORTIZ (March 16, 2021 09:19:03)
[2021-03-16] MEDS ORDERED: PHARMACY CONSULT LTC MEDICATIONS XX SCH (10:00)
[2021-03-16] MEDS ORDERED: LASIX IVP PRN (11:24)
[2021-03-16] MEDS: ALBUMIN HUMAN 25%- 100 ML 100 ML IV SCH (16:15)
[2021-03-16] MEDS ORDERED: NS 500 ML IV 500 ML IV PRN (16:24)
[2021-03-16] MEDS: NYSTATIN CREAM TOP SCH ×2 (18:26→22:37)
[2021-03-17] MEDS: MORPHINE SULFATE INJ 2 MG INJ IVP PRN (01:25)
[2021-03-17 06:25] LABS: BASOPHILS # (AUTO) 0.1 X10^3/uL (0.0-0.1); BASOPHILS % (AUTO) 0.9 % (0.2-1.0); EOSINOPHILS # (AUTO) 0.1 x10^3/uL (0.0-0.2); EOSINOPHILS % (AUTO) 1.2 % (0.9-2.9); HEMATOCRIT 24.9 % (36.0-47.0); HEMOGLOBIN 8.1 g/dL (12.0-16.0); LYMPHOCYTES # (AUTO) 0.9 X10^3/uL (1.3-2.9); MEAN CORPUSCULAR HEMOGLOBIN 26.1 pg (27.0-34.0); MEAN CORPUSCULAR HGB CONC 32.4 g/dL (33.0-35.0); MEAN CORPUSCULAR VOLUME 80.6 fL (80.0-100.0); MEAN PLATELET VOLUME 9.7 fL (7.4-11.0); MONOCYTES # (AUTO) 0.4 x10^3/uL (0.3-0.8); MONOCYTES % (AUTO) 6.9 % (0.0-13.0); NEUTROPHILS # (AUTO) 4.8 x10^3/uL (2.2-4.8); PLATELET COUNT 134 X10^3/uL (150.0-450.0); RED BLOOD COUNT 3.09 X10^6/uL (3.5-5.4); RED CELL DISTRIBUTION WIDTH 18.6 % (11.6-16.5); WHITE BLOOD COUNT 6.3 X10^3/uL (3.6-10.0)
[2021-03-17 06:38] LABS: ALANINE AMINOTRANSFERASE 34 Units/L (12-78); ALBUMIN 2.4 g/dL (3.4-5.0); ALKALINE PHOSPHATASE 132 Units/L (46-116); ASPARTATE AMINO TRANSFERASE 43 Units/L (15-37); BLOOD UREA NITROGEN 22 mg/dL (7-18); CALCIUM 8.2 mg/dL (8.5-10.1); CARBON DIOXIDE 26.7 mmol/L (21-32); CHLORIDE 108 mmol/L (98-107); COR CA(FOR HYPOALB) 9.5 mg/dL (8.5-10.1); CREATININE 0.96 mg/dL (0.55-1.02); SODIUM 143 mmol/L (136-145); TOTAL PROTEIN 5.5 g/dL (6.4-8.2); eGFR NON BLACK RACES 59 (>60)
[2021-03-17 06:53] LABS: ANISOCYTOSIS SLIGHT; HYPOCHROMASIA SLIGHT; OVALOCYTES SLIGHT; PLATELET MORPHOLOGY COMMENT NORMAL (NORMAL)
--- NOTE | 2021-03-17 08:15 | RAD ---
HISTORYSOBSTUDYCHEST x-ray, 1 VIEWCOMPARISONX-ray 03/16/2021FINDINGSCardiomegaly. Probable pericardial effusion. Heart size may be slightly improved, though. Probable CHF. Vague bilateral perihilar densities could be pulmonary edema but pneumonia is not excluded. Probable small pleural effusions. No pneumothorax is seen.IMPRESSIONCHF may be slightly improved since prior study. Persistent bilateral perihilar infiltrates. These could be pneumonia or pulmonary edema.Electronically signed by: Michael Collins (March 17, 2021 08:13:17)
[2021-03-17] MEDS: NYSTATIN CREAM TOP SCH ×2 (10:00→21:01)
[2021-03-17] MEDS: ALBUMIN HUMAN 25%- 100 ML 100 ML IV SCH (10:00)
--- NOTE | 2021-03-17 10:04 | PCM.PROG ---
Progress Note - Progress Note for Day of Date of Exam: 03/15/21 - Subjective Subjective: WAS ADMITTED FOR TREATMENT OF A-FIB, ANASARCA, CHEST PAIN RULE OUT ACUTE GA, AMS, HYPOTHERMIA, AND PLEURAL EFFUSION. TODAY, SHE IS LYING IN BED WITH EYES CLOSED ON MORNING ROUNDS. SHE AWAKENS TO VERBAL STIMULI BUT QUICKLY FALLS BACK TO SLEEP. PATIENTS DAUGHTER IS AT BEDSIDE. SHE REPORTS THAT SHE RESTED WELL THROUGHOUT THE NIGHT. PATIENT CONTINUES TO HAVE GENERALIZED SWELLING. SHE HAS WEEPING OF THE UPPER AND LOWER EXTREMITIES. THERE IS DRAINAGE FROM OPEN WOUND TO ABDOMINAL FOLD. HER VITALS THIS MORNING ARE: 96.8-48-29-100-99/55. SHE HAS BEEN HYPOTENSIVE THROUGHOUT THE NIGHT. LABS WERE OBTAINED. ABNORMAL LAB VALUES INCLUDE THE FOLLOWING: HGB 9.1, HCT 28.9, PLT COUNT 134, CHLORIDE 111, BUN 26, CREATININE 1.06, CALCIUM 8.0, AST 38, ALK PHOS 152, TOTAL PROTEIN 5.2, ALBUMIN 2.0. CARDIAC ENZYMES HAVE BEEN WITHIN NORMAL LIMITS. EKG CONTINUES TO SHOW ATRIAL FIBRILLATION, RATE CONTROLLED. CHEST XRAY TODAY REVEALED: Cardiomegaly and small effusions possible without severe edema. SHE IS CURRENTLY RECEIVING HEPARIN DRIP, MORPHINE SULFATE 2MG IV Q6H PRN PAIN, ZOFRAN 4MG IV Q8H PRN. TODAY, WE WILL DISCONTINUE THE HEPARIN DRIP AND START LOVENOX. OTHERWISE, WE WILL CONTINUE TO MONITOR. WILL SEE HER IN THE MORNING. TIME SPENT ON CLINICAL ASSESSMENT, REVIEWING LABS AND IMAGING, DECISION MAKING, AND DOCUMENTATION GREATER THAN 45 MINUTES. - Past Medical Family Social History Past Med/Fam/Surg Hx: No changes since H&P Allergies: Allergies No Known Drug Allergies Allergy (Verified 11/09/19 13:12) - Review of Systems ROS: No change since H&P - Vital Signs and I&O's Vital Signs: Temperature 97.9 F Pulse Rate [Left Radial] 78 Pulse Rate 108 Respiratory Rate 24 Blood Pressure [Left Arm] 102/68 Blood Pressure [Right Arm] 118/79 Blood Pressure 178/91 O2 Sat by Pulse Oximetry 97 Intake and Output: Intake & Output 03/14/21 03/15/21 03/16/21 03/17/21 11:59 11:59 11:59 11:59 Intake Total 540 / 540 194 / 194 Output Total 350 / 350 450 / 450 930 / 930 Balance 190 / 190 -256 / -256 -930 / -930 - Physical Exam Oriented: Not Oriented Eyes: Normal Ear: Normal Nose: Normal Throat: Normal Respiratory: Generalized, Diminished Cardiovascular: Irregular (BLE 2+ PITTING EDEMA ), Edema : Normal Auscultation: Bowel Sounds: Normal Palpation: Normal Tenderness: Normal Skin: Normal Musculoskeletal: Normal Psychiatric: Normal Mood Description: Calm Affect: Normal Speech Pattern: Unclear - Laboratory and Diagnostics Result Diagrams: 03/17/21 05:18 03/17/21 05:18 Labs: Laboratory WBC 6.3 X10^3/uL (3.6-10.0) 03/17/21 05:18 RBC 3.09 X10^6/uL (3.5-5.4) L 03/17/21 05:18 Hgb 8.1 g/dL (12.0-16.0) L 03/17/21 05:18 Hct 24.9 % (36.0-47.0) L 03/17/21 05:18 MCV 80.6 fL (80.0-100.0) 03/17/21 05:18 MCH 26.1 pg (27.0-34.0) L 03/17/21 05:18 MCHC 32.4 g/dL (33.0-35.0) L 03/17/21 05:18 RDW 18.6 % (11.6-16.5) H 03/17/21 05:18 Plt Count 134 X10^3/uL (150.0-450.0) L 03/17/21 05:18 Plt Count Comment Decreased (ADEQUATE) A 03/17/21 05:18 MPV 9.7 fL (7.4-11.0) 03/17/21 05:18 Neut % (Auto) 76.0 % (42.0-75.0) H 03/17/21 05:18 Lymph % (Auto) 15.0 % (21.0-51.0) L 03/17/21 05:18 [place] % (Auto) 6.9 % (0.0-13.0) 03/17/21 05:18 Eos % (Auto) 1.2 % (0.9-2.9) 03/17/21 05:18 Baso % (Auto) 0.9 % (0.2-1.0) 03/17/21 05:18 Neut # (Auto) 4.8 x10^3/uL (2.2-4.8) 03/17/21 05:18 Lymph # (Auto) 0.9 X10^3/uL (1.3-2.9) L 03/17/21 05:18 [place] # (Auto) 0.4 x10^3/uL (0.3-0.8) 03/17/21 05:18 Eos # (Auto) 0.1 x10^3/uL (0.0-0.2) 03/17/21 05:18 Baso # (Auto) 0.1 X10^3/uL (0.0-0.1) 03/17/21 05:18 Absolute Nucleated RBC 1.1 /100WBC 03/17/21 05:18 Plt Morphology Comment Normal (NORMAL) 03/17/21 05:18 RBC Morphology Abnormal (NORMAL) A 03/17/21 05:18 Hypochromasia Slight A 03/17/21 05:18 Anisocytosis Slight A 03/17/21 05:18 Ovalocytes Slight A 03/17/21 05:18 PT 25.3 SECONDS (11.8-14.3) 03/14/21 23:40 INR Target Range - 03/14/21 23:40 INR 2.43 (0.8-1.3) H 03/14/21 23:40 APTT > 135.0 SECONDS (22.9-36.5) H* 03/15/21 05:55 PTT Comment - 03/15/21 05:55 Sodium 143 mmol/L (136-145) 03/17/21 05:18 Corrected Sodium TNP 03/17/21 05:18 Potassium 4.1 mmol/L (3.5-5.1) 03/17/21 05:18 Chloride 108 mmol/L (98-107) H 03/17/21 05:18 Carbon Dioxide 26.7 mmol/L (21-32) 03/17/21 05:18 BUN 22 mg/dL (7-18) H 03/17/21 05:18 Creatinine 0.96 mg/dL (0.55-1.02) 03/17/21 05:18 Est GFR (MDRD) Af Amer > 60 (>60) 03/17/21 05:18 Est GFR (MDRD) Non-Af 59 (>60) 03/17/21 05:18 Glucose 73 mg/dL (65-99) 03/17/21 05:18 POC Glucose (mg/dL) 79 mg/dL (65-99) 03/17/21 05:17 Lactic Acid 1.9 mmol/L (0.4-2.0) 03/14/21 14:30 Calcium 8.2 mg/dL (8.5-10.1) L 03/17/21 05:18 Corrected Calcium 9.5 mg/dL (8.5-10.1) 03/17/21 05:18 Total Bilirubin 1.40 mg/dL (0.2-1.0) H 03/17/21 05:18 AST 43 Units/L (15-37) H 03/17/21 05:18 ALT 34 Units/L (12-78) 03/17/21 05:18 Alkaline Phosphatase 132 Units/L (46-116) H 03/17/21 05:18 Creatine Kinase 107 Units/L (26-192) 03/15/21 23:40 CK-MB (CK-2) 6.3 ng/mL (0-4.0) H* 03/15/21 23:40 CK/CKMB % Calc 5.9 % (<4) 03/15/21 23:40 Troponin I 0.04 ng/mL (0-1.5) 03/15/21 23:40 Total Protein 5.5 g/dL (6.4-8.2) L 03/17/21 05:18 Albumin 2.4 g/dL (3.4-5.0) L 03/17/21 05:18 Globulin 3.1 g/dL (2.5-4.5) 03/17/21 05:18 Albumin/Globulin Ratio 0.8 Ratio (1.1-2.1) L 03/17/21 05:18 Specimen Type Catherized urine 03/14/21 17:35 Urine Color Yellow (YELLOW) 03/14/21 17:35 Urine Appearance Clear (CLEAR) 03/14/21 17:35 Urine pH 5.0 (5.0 - 8.0) 03/14/21 17:35 Ur Specific [place] 1.020 (1.000-1.030) 03/14/21 17:35 Urine Protein 1+ (NEGATIVE) 03/14/21 17:35 Urine Glucose (UA) Negative (NEGATIVE) 03/14/21 17:35 Urine Ketones Negative (NEGATIVE) 03/14/21 17:35 Urine Occult Blood Negative (NEGATIVE) 03/14/21 17:35 Urine Nitrite Negative (NEGATIVE) 03/14/21 17:35 Urine Bilirubin Negative (NEGATIVE) 03/14/21 17:35 Urine Urobilinogen Normal (NORMAL) 03/14/21 17:35 Ur Leukocyte Esterase Negative (NEGATIVE) 03/14/21 17:35 Urine RBC 0-2 /HPF (0-3) 03/14/21 17:35 Urine WBC 0-2 /HPF (0-5) 03/14/21 17:35 Ur Squamous Epith Cells Numerous /HPF (NEGATIVE) 03/14/21 17:35 Urine Bacteria Negative /HPF (NEGATIVE) 03/14/21 17:35 Urine Mucus Rare /HPF (NEGATIVE) 03/14/21 17:35 Ur Culture Indicated? No/not indicated 03/14/21 17:35 SARS CoV-2 RNA Rapid CIPRIANO Negative (NEGATIVE) 03/14/21 16:07 Blood Type O POSITIVE 03/16/21 12:03 Crossmatch See Detail 03/16/21 12:03 - Plan (1) Atrial fibrillation Status: Acute Qualifiers: Atrial fibrillation type: unspecified Qualified Code(s): I48.91 - Unspecified atrial fibrillation Plan: ADVERTISING PHOTOGRAPHER, LOVENOX, MORPHINE SULFATE 2MG IV Q6H PRN PAIN, ZOFRAN 4MG IV Q8H PRN. (2) Anasarca Status: Acute (3) Chest pain, rule out acute myocardial infarction Status: Acute (4) AMS (altered mental status) Status: Acute Qualifiers: Altered mental status type: stupor Qualified Code(s): R40.1 - Stupor (5) Hypothermia Status: Acute Qualifiers: Encounter type: initial encounter Qualified Code(s): T68.XXXA - Hypothermia, initial encounter (6) Pleural effusion Status: Acute
--- NOTE | 2021-03-17 11:13 | CT ---
HISTORYAMS, CONFUSION, R/O CVASTUDYBRAIN W/O CONCOMPARISONHead CT 03/14/2021TECHNIQUEMultiple CT axial images of the head were obtained without IV contrast. Coronal and sagittal images were reconstructed. Dose reduction techniques included Automated Exposure Control (AEC) and adjustment of mA and kV.FINDINGSAge-related findings include central and cortical atrophy with areas of low density in the periventricular white matter compatible with micro-ischemic changes.Otherwise ferguson and white matter have normal differentiation. There is no mass, shift, or hemorrhage. Cerebellar tonsils are at an appropriate level. No fluid in the sinuses or mucosal thickening to suggest sinusitis. There is no mastoid effusion.IMPRESSION1. No acute findingElectronically signed by: Fam Whiteside (March 17, 2021 11:10:59)
[2021-03-17] MEDS: LOVENOX INJ 30 MG SYR SC SCH ×2 (11:17→20:58)
[2021-03-17] MEDS ORDERED: LOPRESSOR INJ 5 MG AMP IVP PRN (17:14)
[2021-03-17] MEDS ORDERED: TOPROL XL PO ONE (17:50)
[2021-03-17] MEDS: TOPROL XL PO SCH (17:53)
[2021-03-17] MEDS ORDERED: LOPRESSOR INJ 5 MG AMP IVP ONE (17:54)
[2021-03-18 06:42] LABS: BASOPHILS % (AUTO) 0.5 % (0.2-1.0); EOSINOPHILS # (AUTO) 0.1 x10^3/uL (0.0-0.2); EOSINOPHILS % (AUTO) 1.5 % (0.9-2.9); HEMATOCRIT 25.4 % (36.0-47.0); HEMOGLOBIN 8.3 g/dL (12.0-16.0); LYMPHOCYTES # (AUTO) 0.9 X10^3/uL (1.3-2.9); LYMPHOCYTES % (AUTO) 17.2 % (21.0-51.0); MEAN CORPUSCULAR HEMOGLOBIN 26.4 pg (27.0-34.0); MEAN CORPUSCULAR HGB CONC 32.5 g/dL (33.0-35.0); MEAN CORPUSCULAR VOLUME 81.2 fL (80.0-100.0); MEAN PLATELET VOLUME 9.1 fL (7.4-11.0); MONOCYTES # (AUTO) 0.4 x10^3/uL (0.3-0.8); MONOCYTES % (AUTO) 8.6 % (0.0-13.0); NEUTROPHILS # (AUTO) 3.7 x10^3/uL (2.2-4.8); NEUTROPHILS % (AUTO) 72.2 % (42.0-75.0); PLATELET COUNT 109 X10^3/uL (150.0-450.0); RED BLOOD COUNT 3.13 X10^6/uL (3.5-5.4); RED CELL DISTRIBUTION WIDTH 18.5 % (11.6-16.5); WHITE BLOOD COUNT 5.1 X10^3/uL (3.6-10.0)
[2021-03-18 07:09] LABS: ALANINE AMINOTRANSFERASE 32 Units/L (12-78); ALBUMIN 2.8 g/dL (3.4-5.0); ALKALINE PHOSPHATASE 117 Units/L (46-116); ASPARTATE AMINO TRANSFERASE 34 Units/L (15-37); BLOOD UREA NITROGEN 18 mg/dL (7-18); CALCIUM 8.4 mg/dL (8.5-10.1); CARBON DIOXIDE 27.4 mmol/L (21-32); CHLORIDE 108 mmol/L (98-107); COR CA(FOR HYPOALB) 9.4 mg/dL (8.5-10.1); CREATININE 1.01 mg/dL (0.55-1.02); SODIUM 144 mmol/L (136-145); TOTAL PROTEIN 5.8 g/dL (6.4-8.2); eGFR NON BLACK RACES 56 (>60)
[2021-03-18] MEDS: TOPROL XL PO SCH (08:52)
[2021-03-18] MEDS: ALBUMIN HUMAN 25%- 100 ML 100 ML IV SCH (09:15)
[2021-03-18] MEDS: LOVENOX INJ 30 MG SYR SC SCH ×2 (09:19→21:01)
[2021-03-18] MEDS: NYSTATIN CREAM TOP SCH ×2 (09:22→21:02)
[2021-03-18] MEDS ORDERED: NS 100 ML IV 100 ML IV ONE ×2 (11:20→17:19)
[2021-03-18] MEDS ORDERED: TOPROL XL PO ONE (18:42)
[2021-03-18] MEDS ORDERED: TOPROL XL PO SCH (19:00)
[2021-03-18 23:30] LABS: HEMATOCRIT 31.7 % (36.0-47.0); HEMOGLOBIN 10.6 g/dL (12.0-16.0)
[2021-03-19 06:08] LABS: BASOPHILS % (AUTO) 0.4 % (0.2-1.0); EOSINOPHILS % (AUTO) 0.8 % (0.9-2.9); HEMATOCRIT 30.1 % (36.0-47.0); HEMOGLOBIN 10.2 g/dL (12.0-16.0); LYMPHOCYTES # (AUTO) 0.8 X10^3/uL (1.3-2.9); LYMPHOCYTES % (AUTO) 12.7 % (21.0-51.0); MEAN CORPUSCULAR HEMOGLOBIN 27.9 pg (27.0-34.0); MEAN CORPUSCULAR HGB CONC 33.8 g/dL (33.0-35.0); MEAN CORPUSCULAR VOLUME 82.6 fL (80.0-100.0); MEAN PLATELET VOLUME 9.2 fL (7.4-11.0); MONOCYTES # (AUTO) 0.5 x10^3/uL (0.3-0.8); MONOCYTES % (AUTO) 7.9 % (0.0-13.0); NEUTROPHILS % (AUTO) 78.2 % (42.0-75.0); PLATELET COUNT 93 X10^3/uL (150.0-450.0); RED BLOOD COUNT 3.65 X10^6/uL (3.5-5.4); RED CELL DISTRIBUTION WIDTH 17.9 % (11.6-16.5); WHITE BLOOD COUNT 6.4 X10^3/uL (3.6-10.0)
[2021-03-19 06:15] LABS: ALANINE AMINOTRANSFERASE 25 Units/L (12-78); ALBUMIN 2.9 g/dL (3.4-5.0); ALKALINE PHOSPHATASE 108 Units/L (46-116); ASPARTATE AMINO TRANSFERASE 32 Units/L (15-37); BLOOD UREA NITROGEN 15 mg/dL (7-18); CALCIUM 8.3 mg/dL (8.5-10.1); CHLORIDE 108 mmol/L (98-107); COR CA(FOR HYPOALB) 9.2 mg/dL (8.5-10.1); CREATININE 0.81 mg/dL (0.55-1.02); SODIUM 142 mmol/L (136-145); TOTAL PROTEIN 5.6 g/dL (6.4-8.2); eGFR NON BLACK RACES > 60 (>60)
[2021-03-19] MEDS ORDERED: TOPROL XL PO ONE (08:19)
[2021-03-19] MEDS ORDERED: LOPRESSOR TAB 50 MG PO ONE (09:47)
[2021-03-19] MEDS: NYSTATIN CREAM TOP SCH ×2 (10:00→20:53)
[2021-03-19] MEDS: ALBUMIN HUMAN 25%- 100 ML 100 ML IV SCH (10:00)
[2021-03-19] MEDS: LOPRESSOR TAB 50 MG PO SCH ×2 (11:26→20:52)
[2021-03-19] MEDS: PROTONIX TAB 40 MG PO SCH ×2 (11:27→20:53)
--- NOTE | 2021-03-19 11:27 | US ---
HISTORYELEVATED BILLIRUBINSTUDYGALL BLADDERCOMPARISONCT abdomen 03/14/2021TECHNIQUENinety-five images made by the manager skilled. Pierson scale and color-flow doppler images of the right upper quadrant were obtained.FINDINGSThe liver has normal echogenicity and size. No mass or intrahepatic biliary duct dilatation is present. The intrahepatic inferior vena cava was imaged. The inferior vena cava may be dilated measuring 2.6 cm. This can be seen with elevated right heart pressures. The portal vein is patent with blood flow toward the liver. The visualized hepatic veins are patent with blood flow toward the right atrium. Hepatic artery was patent.The pancreatic head and body are unremarkable. The pancreatic tail is largely obscured by overlying bowel gas.The gallbladder is normally distended with no stones or pericholecystic fluid. There is gallbladder wall thickening measuring between 4 and 5 mm. Gallbladder wall thickening is a nonspecific finding. It can be see with many acute or chronic processes. The most common acute etiology is acute cholecystitis. The most common chronic etiology is chronic cholecystitis. A nuclear medicine hepatobiliary scan can help differentiate between these two etiologies. No extrahepatic biliary duct dilatation; common duct is normal.The right kidney is normal in size and echogenicity. No hydronephrosis.Incidental finding includes a small right pleural effusion.IMPRESSION1. Nonspecific gallbladder wall thickening, see note2. Dilated IVC, possibly from elevated right heart pressures3. Small right effusionElectronically signed by: Fam Whiteside (March 19, 2021 11:24:57)
[2021-03-20 06:11] LABS: BASOPHILS % (AUTO) 0.3 % (0.2-1.0); EOSINOPHILS # (AUTO) 0.1 x10^3/uL (0.0-0.2); EOSINOPHILS % (AUTO) 1.4 % (0.9-2.9); HEMATOCRIT 31.8 % (36.0-47.0); HEMOGLOBIN 10.5 g/dL (12.0-16.0); LYMPHOCYTES # (AUTO) 0.9 X10^3/uL (1.3-2.9); LYMPHOCYTES % (AUTO) 15.3 % (21.0-51.0); MEAN CORPUSCULAR HEMOGLOBIN 27.6 pg (27.0-34.0); MEAN CORPUSCULAR VOLUME 83.6 fL (80.0-100.0); MEAN PLATELET VOLUME 9.3 fL (7.4-11.0); MONOCYTES # (AUTO) 0.5 x10^3/uL (0.3-0.8); MONOCYTES % (AUTO) 7.5 % (0.0-13.0); NEUTROPHILS # (AUTO) 4.6 x10^3/uL (2.2-4.8); NEUTROPHILS % (AUTO) 75.5 % (42.0-75.0); PLATELET COUNT 96 X10^3/uL (150.0-450.0); RED CELL DISTRIBUTION WIDTH 17.9 % (11.6-16.5); WHITE BLOOD COUNT 6.1 X10^3/uL (3.6-10.0)
[2021-03-20 06:24] LABS: ALANINE AMINOTRANSFERASE 25 Units/L (12-78); ALBUMIN 3.3 g/dL (3.4-5.0); ALKALINE PHOSPHATASE 101 Units/L (46-116); ASPARTATE AMINO TRANSFERASE 26 Units/L (15-37); BLOOD UREA NITROGEN 16 mg/dL (7-18); CALCIUM 8.6 mg/dL (8.5-10.1); CARBON DIOXIDE 25.1 mmol/L (21-32); CHLORIDE 107 mmol/L (98-107); COR CA(FOR HYPOALB) 9.2 mg/dL (8.5-10.1); CREATININE 0.88 mg/dL (0.55-1.02); SODIUM 142 mmol/L (136-145); TOTAL PROTEIN 6.3 g/dL (6.4-8.2); eGFR NON BLACK RACES > 60 (>60)
[2021-03-20] MEDS: ALBUMIN HUMAN 25%- 100 ML 100 ML IV SCH (10:22)
[2021-03-20] MEDS: LOPRESSOR TAB 50 MG PO SCH (10:23)
[2021-03-20] MEDS: PROTONIX TAB 40 MG PO SCH (10:23)
[2021-03-20] MEDS: NYSTATIN CREAM TOP SCH (10:44)
[2021-03-20 11:02] VITALS: BP 131/84
== END 2021-03-20 12:15 | disposition hospice, home (50) | DRG 947 ==
LOC: ER 11:38 → ICU 14:44 → MED/SURG 03-19 15:16
PROVIDERS: ADMIT Internal Medicine; ATTEND Obstetrics & Gynecology Obstetrics